=== PATIENT | male | born 1940 | race Caucasian/White ===

== ENCOUNTER 2017-10-31 05:39 | Inpatient (IN) | payer OTHER, MEDICARE ==
[2017-10-31] VITALS (15 sets, daily range): BP systolic 111–143; BP diastolic 56–83; PULSE 58–86; RESP 17–20; TEMP 98.2–98.6; O2SAT 61–98
[~2017-10-31] VITALS: Ht 172.7 cm; Wt 81.0 kg
[~2017-10-31 05:39] MED LIST: Z.0.NO CURRENT MEDS
[2017-10-31] MEDS ORDERED: ASPI-516 CHEW (06:28)
[2017-10-31] MEDS ORDERED: NITR0.4S SL (06:34)
[2017-10-31] MEDS ORDERED: CARV3.12 PO (06:34)
[2017-10-31] MEDS ORDERED: ATOR10TA15 PO (06:34)
[2017-10-31] MEDS ORDERED: AMLO2.5T PO (06:34)
[2017-10-31] MEDS ORDERED: LISI-515 PO (06:34)
[2017-10-31 06:45] LABS: AUTOMATED NEUTROPHIL # 4.7 TH/MM3 (1.8-7.7); BASOPHIL # 0.1 TH/MM3 (0-0.2); BASOPHIL % 0.9 % (0.0-2.0); EOSINOPHIL # 0.4 TH/MM3 (0-0.4); EOSINOPHIL % 4.8 % (0.0-4.0); HEMATOCRIT 42.4 % (39.0-51.0); HEMOGLOBIN 14.7 GM/DL (13.0-17.0); LYMPHOCYTE # 1.9 TH/MM3 (1.0-4.8); MEAN CELL VOLUME 89.5 FL (80.0-100.0); MEAN CORPUSCULAR HEMOGLOBIN 31.1 PG (27.0-34.0); MEAN CORPUSCULAR HGB CONC 34.7 % (32.0-36.0); MEAN PLATELET VOLUME 8.9 FL (7.0-11.0); MONOCYTE # 0.8 TH/MM3 (0-0.9); NEUT % 60.3 % (16.0-70.0); PLATELET COUNT 215 TH/MM3 (150-450); RED BLOOD COUNT 4.74 MIL/MM3 (4.50-5.90); RED CELL DISTRIBUTION WIDTH 13.4 % (11.6-17.2); WHITE BLOOD COUNT 7.7 TH/MM3 (4.0-11.0)
[2017-10-31 07:03] LABS: BICARBONATE 26.1 MEQ/L (21.0-32.0); CALCIUM 8.9 MG/DL (8.5-10.1); CREATININE 1.24 MG/DL (0.60-1.30)
[2017-10-31 07:04] LABS: PROTHROMBIN TIME - PATIENT 9.8 SEC (9.8-11.6)
[2017-10-31] MEDS: NS 1000P @30 MLS/HR (KVO) IV SCH ×2 (07:15→11:00)
[2017-10-31] MEDS ORDERED: HEPARIN SODIUM - IV 10,000 UNITS/10 ML VIAL ONE (07:17)
[2017-10-31] MEDS ORDERED: VERAPAMIL HCL 5 MG/2 ML VIAL ONE (07:17)
[2017-10-31] MEDS ORDERED: HEPARIN-NS/PF FLUSH BAG 2,000 ML IV FLUSH ONE (07:17)
[2017-10-31] MEDS ORDERED: MIDAZOLAM HCL 2 MG/2 ML VIAL ONE (07:17)
[2017-10-31] MEDS ORDERED: NITROGLYCERIN INJ 5 ML ONE (07:18)
--- NOTE | 2017-10-31 08:08 | CATHPROC ---
Patient Name: SYLVESTER SAMUEL Study #: [id number] Initial MD: Heber Santillan Date of : 1940 Study Date: 10/31/2017 Cardiac Catheterization Report 10/31/2017 8:08:08 AM Financial #: [id number] 1 of Patient Name: SYLVESTER SAMUEL Study #: [id number] Initial MD: Heber Santillan Date of : 1940 Study Date: 10/31/2017 Entire Case Report Patient Information Patient Name SYLVESTER SAMUEL Date of 1940 Age 77 years Financial # [id number] Gender M AlternateID Lab Number 4 Room Number DC10 Height (in) 68.0 Height (cm) 172.7 BSA 1.89 Weight (lbs) 166.5 Weight (kg) 75.7 Patient Address/Phone Number Home Address [facility] Home Phone Number [address] [facility] [phone] Study Information Study Number Admission Scheduled Start Study Start [id number] Oct 31 2017 5:39AM 10/31/2017 Oct 31 2017 7:04AM [facility] Cardiac Catheterization Admit Source Facility Department Other [facility] - Disability Counselor Physician and Clinical Staff Initial Heber Solares Manager Gas Yen Vazquez,MATY Other cathlab, cathlab Recorder Jesus Alberto Ribeiro RCIS(BS) Recorder Kendra Montes RT(R) Scrub Kailyn BhattiRT(R) Procedures Performed Procedure Location (Site) Vessel Name Coronary Angiograms LCA Left Coronary Coronary Angiograms RCA Right Coronary L Heart Cath 10/31/2017 8:08:08 AM Financial #: [id number] Patient Name: SYLVESTER SAMUEL Study #: [id number] Initial MD: Heber Santillan Date of : 1940 Study Date: 10/31/2017 Equipment Time Strike Off Machine Operator Description Size Mfg Part Number Used/Scraped TRANSDUCER, TRUWEVERETT [id number] 07:20 HERNANDEZ DIAZ * Used W/STOCKCOCK *[id number] *[id number] *[id number] 07:20 MALLINCKRODT SYRINGE, ANGIOMAT 150ML 150ML *[id number] Used 2SUB MEDICAL CONCEPT DRAPE, RADIAL FEMORAL FULL 07:20 * [id number] *[id number] Used DEVELOPMENT BODY [id number] 07:20 MEDLINE INDUSTRIES PACK, CCL CUSTOM * Used *[id number] 07:20 MEDLINE INDUSTRIES SUPPORT, ARTERIAL ADULT [id number] *[id number] Used [id number] 07:20 MEDLINE PACER PEN, SKIN DUAL W/ RULER * Used *[id number] BAND, RADIAL COMPRESSION TR [id number] 07:50 Edi.io 24CM Used SHORT 24 *[id number] SHEATH, FR6 RADIAL PRELUDE 07:20 Edi.[employer] FR 6 [id number] Used EASE 11CM [id number] 07:20 [employer]i.[employer] WIRE, EXCHANGE 260CM 3MMJ 260CM Used *[id number] 07:20 NAMIC MANIFOLD, 4 PORT * Used *[id number] 07:20 NYCOMED OMNIPAQUE, 350 MG, 150ML 150ML [id number] Used [id number] 07:20 [facility] BLANKET,WARM AIR CCL * Used *[id number] CATHETER, FR5 OPTITORQUE [id number] 07:34 TERUMO MEDICAL FR 5 Used RADIAL TIG 4.0 *[id number] Insurance Information Insurance Payor Private Health Insurance Third Libertarian Third Libertarian Number [employer] [facility] History: Current Medications Medication Dosage/Unit Route Frequency Last Date/Time Taken LISINOPRIL ASA History: Allergies Allergy Reaction No Known Allergies 10/31/2017 8:08:08 AM Financial #: [id number] Patient Name: SYLVESTER SAMUEL Study #: [id number] Initial MD: Heber Santillan Date of : 1940 Study Date: 10/31/2017 History: Risk Factors Family History of Hypertension Dyslipidemia Previous RI Previous Heart Failure Premature CAD Yes Yes Yes No No Prior Valve Prior PCI Prior CABG Surgery No No No Cerebrovascular Peripheral Artery Chronic Lung On Dialysis Diabetes Disease Disease Disease No No Yes No No History: Stress Tests Stress or Imaging Studies Performed No History: Other Disease Selection Items HTN History: Other Current Smoker Method Quit Packs a Day Years Used Pack Years No Cigarettes 30 Years Ago 1 35 35 Labs Hgb (g/dl) Hct (%) WBC (l/cumm) Platelets (thousands) 11.60-17.00 35.00-51.00 4.00-11.00 150.00-450.00 14.7 42.4 7.7 215 Glucose (mg/dl) BUN (mg/dl) Creatinine (mg/dl) BUN:Creatinine (1:x) 74.00-106.00 7.00-18.00 0.50-1.30 10.00-20.00 91 22 1.2 18.3 CPK-MB (ng/ML) 0.50-3.60 Not Drawn Medication Medication Total Dose (Bolus/Oral) Medication Total Dosage/Unit 1% XYLOCAINE 10 mL RADIAL COCKTAIL 5 mL (Bolus) VERSED 2 mg 10/31/2017 8:08:08 AM Financial #: [id number] Patient Name: SYLVESTER SAMUEL Study #: [id number] Initial MD: Heber Santillan Date of : 1940 Study Date: 018 Medications (Bolus/Oral) Medication Time Given Dosage/Unit Administered By Reason 1% XYLOCAINE 10/31/2017 7:33:04 AM 10 mL Heber Santillan 10 mL 1% XYLOCAINE given in lab by Heber Santillan in Right Radial via Subcutaneous. Ordered by Rudy Santillan. VERSED 10/31/2017 7:33:14 AM 2 mg Yen Vazquez 2 mg VERSED given in lab by Yen Vazquez, RN in Left Antecubital via Peripheral IV. Ordered by Heber Montenegro. Ntg 200mcg Verapamil 2.5mg Heparin RADIAL COCKTAIL 10/31/2017 7:38:00 AM 5 mL (Bolus) Heber Santillan 2500U 5 mL (Bolus) RADIAL COCKTAIL given in lab by Heber Santillan in Right Radial via Radial. Using [Solution Name]. Ordered by Heber Santillan. Reason: Ntg 200mcg Verapamil 2.5mg Heparin 2500U. Medication (Drip) Medication Time Given Dosage/Unit Concentration/Unit Diluent (ml) Solution IV Solutions 10/31/2017 7:10:23 AM 0 mL (IV) 500 NaCl .9 Patient arrived on IV Solutions given by cathlab, cathlab in Left Antecubital via Peripheral IV. Pump /Drip Flow = 20 ml/hr using NaCl .9. Ordered by Heber Santillan. Initial Case Assessment Cardiovascular HR Rhythm NIBP Chest Pain 57 nsr 118/63 0 Edema Present Skin color Skin None Normal Warm Dry Circulatory - Right Pulses Dorsalis Pedis Femoral Radial 2 2 2 Scale (0,1,2,3,4,d) Scale (0,1,2,3,4,d) Neurological State Oriented to time-place- Alert Moves all extremities person Respiration - General Respiration Rate SpO2 (%) (B/min) 15 95 10/31/2017 8:08:08 AM Financial #: [id number] Patient Name: SYLVESTER SAMUEL Study #: [id number] Initial MD: Heber Santillan Date of : 1940 Study Date: 10/31/2017 Vitals Summary Pain Time HR NIBP SpO2 Resp Temp EtCO2 Apnea Santo [place] Comment Level 07:21:04 61 118/63 100.0 15 10 0 2 07:26:32 59 146/80 100.0 12 10 0 2 07:31:02 59 136/85 100.0 15 10 0 2 07:36:03 63 120/71 96.0 9 10 0 2 07:41:02 67 125/61 94.0 11 10 0 2 07:46:01 73 105/72 96.0 15 10 0 2 07:50:58 62 110/65 99.0 39 10 0 2 Santo Score Summary Time Activity Resp Circ LOC Color Total Score 7:21:04 2 2 2 2 2 10 7:26:32 2 2 2 2 2 10 7:31:02 2 2 2 2 2 10 7:36:03 2 2 2 2 2 10 7:41:02 2 2 2 2 2 10 7:46:01 2 2 2 2 2 10 7:50:58 2 2 2 2 2 10 Santo Score Definition Table Activity - 0 Activity - 1 Activity - 2 No Movement to Command Weak Hand Grasp Lift Head, Good Hand Grasp Respiration - 0 Respiration - 1 Respiration - 2 Apneic or Obstructed Shallow Breath, Airway Adjunct Deep Breath, Cough Freely Circulation - 0 Circulation - 1 Circulation - 2 B/P > 50% Admission B/P B/P > 20-50% Admission B/P B/P Stable X3 Level of Consciousness - 0 Level of Consciousness - 1 Level of Consciousness - 2 Not Responding Arousable On Calling Awake and Aware Color - 0 Color- 1 Color - 2 Cyanotic Lips, Nailbed, Skin Pale, Dusky [place] Or Normal Chronological Log Time Study Chronological Log 7:09:14 Patient arrived via Bed. 7:09:15 Patient Name, D.O.B, / Armband Verified By R.N. 7:10:15 Consent signed by the physician and the patient and verified by the Disability Counselor staff. 7:10:15 Pre-op and post- op instructions given; patient acknowledges understanding of instructions . 7:10:16 Verbal Stimulation=2 Physical Stimulation=2 Airway=2 Respiration=2 TOTAL=8. (0=absent, 1=l imited, 2=present) 10/31/2017 8:08:08 AM Financial #: [id number] Patient Name: SYLVESTER SAMUEL Study #: [id number] Initial MD: Heber Santillan Date of : 1940 Study Date: 10/31/2017 7:10:17 Presedation assessment performed by Disability Counselor RN. 7:10:18 Immediate Presedation assesment performed by physician. 7:10:18 Patient has been NPO for More than 6Hrs. 7:10:19 Skin Breakdown- none per patient 7:10:20 Patient Warmer Placed on the Table. 7:10:22 Raymond Prominences Protected 7:10:23 A # 20 IV was noted in the Antecubital (left). Grade = 0 Patient arrived on IV Solutions given by cathlab cathlab in Left Antecubital via Peripheral IV . Pump/Drip Flow = 20 7:10:23 ml/hr using NaCl .9. Ordered by Heber Santillan. 7:10:24 History and physical on the chart or being dictated. 7:11:00 Allens test performed on the right radial and ulnar artery. 7:15:00 MD arrived. 7:17:26 Reference ECG taken Vitals capture started with the following parameters, Patient=Adult, Interval=5 min, Initial Pr aetzxi=043 mmHg, 7:20:26 Deflation Rate=5 mmHg, Cuff placed on Left Arm Assessment: Initial Case, HR=57 BPM, Rhythm=nsr, INCD=274/63 mmhg, Chest Pain=0, Edema=None, Co en[place]=Normal, Skin = Warm, Dry 7:20:30 Right Pulses: Juan Ramon Ped=2, Femoral=2, Radial=2 Neurological: State=Alert, Ox3, LEDEZMA Respiration: Resp=15 B/min, SpO2=95 % 7:21:04 HR=61 bpm, KIHR=923/63 mmhg, LyM4=257.0 %, Resp=15 B/min, Pain=0, Santo=10, Ellington=2 7:25:19 Right Radial and groin(s) prepped with 2% chlorhexidine, and draped after a 3 min. waiting time. 7:26:32 HR=59 bpm, LUVH=378/80 mmhg, QpQ8=161.0 %, Resp=12 B/min, Pain=0, Santo=10, Ellington=2 7:30:01 Pressure channel 1 zeroed. 7:31:02 HR=59 bpm, WOZU=082/85 mmhg, IgD5=416.0 %, Resp=15 B/min, Pain=0, Santo=10, Ellington=2 Time Out. Correct patient, correct procedure, correct physician, power injector not loaded with contrast with surgical 7:31:47 team present. Time Out Concurred by MD and individual staff in procedure. 7:32:09 Case Start 7:33:04 10 mL 1% XYLOCAINE given in lab by Heber Santillan in Right Radial via Subcutaneous. Ordered b y Heber Santillan. 7:33:14 2 mg VERSED given in lab by Yen Vazquez, RN in Left Antecubital via Peripheral IV. Orde red by Heber Santillan. 7:36:03 HR=63 bpm, TREJ=175/71 mmhg, SpO2=96.0 %, Resp=9 B/min, Pain=0, Santo=10, Ellington=2 7:36:52 Access site was Right Radial Artery. A SHEATH, FR6 RADIAL PRELUDE EASE 11CM FR 6 was advanced into the Radial (right) using the Perc utaneous 7:36:58 technique. 5 mL (Bolus) RADIAL COCKTAIL given in lab by Tyrell, Heber in Right Radial via Radial. Using [So lution Name]. Ordered 7:38:00 by Heber Santillan. Reason: Ntg 200mcg Verapamil 2.5mg Heparin 2500U. A CATHETER, FR5 OPTITORQUE RADIAL TIG 4.0 FR 5 was advanced over a wire. OMNIPAQUE, 350 MG, 150 ML 150ML 7:38:14 was used for injections. Recorded Pressure: Ao, HR=64, Condition=Condition 1 7:39:43 (Aorta) Ao 104/49/71 7:40:06 The RCA was injected and visualized at various angles. OMNIPAQUE, 350 MG, 150ML 150ML used . 7:40:46 Catheter was removed 7:41:02 HR=67 bpm, MYCY=460/61 mmhg, SpO2=94.0 %, Resp=11 B/min, Pain=0, Santo=10, Ellington=2 A JL 4.0 INFINITI CATHETER FR 4 was advanced over a wire. OMNIPAQUE, 350 MG, 150ML 150ML was us ed for 7:41:27 injections. 10/31/2017 8:08:08 AM Financial #: [id number] Patient Name: SYLVESTER SAMUEL Study #: [id number] Initial MD: Heber Santillan Date of : 1940 Study Date: 10/31/2017 7:42:35 The LCA was injected and visualized at various angles. OMNIPAQUE, 350 MG, 150ML 150ML used . 7:44:37 Catheter was removed A MPA-2 INFINITI CATHETER FR 5 was advanced over a wire. OMNIPAQUE, 350 MG, 150ML 150ML was use d for 7:45:22 injections. 7:46:01 HR=73 bpm, HDWY=445/72 mmhg, SpO2=96.0 %, Resp=15 B/min, Pain=0, Santo=10, Ellington=2 Recorded Pressure: LV, HR=62, Condition=Condition 1 7:46:31 (Left Ventricle) LV 102/3/11 Recorded Pressure: LV, Ao, HR=65, Condition=Condition 1 7:46:51 (Left Ventricle) LV 119/4/13, (Aorta) Ao 114/53/77 7:48:38 Catheter was removed 7:49:33 Catheter(s) removed without difficulty Radial Compression Device Used. 20 mLs of air placed in BAND, RADIAL COMPRESSION TR SHORT 24 24 CM. Affected 7:49:40 hand 98 % O2 saturation. 7:49:45 No case complications noted. 7:49:47 Cine recording checked. 7:49:48 Bedside Report will be given. 7:49:53 Contrast Scanned 7:50:00 Case End 7:50:01 A Left Heart Cath was performed. 7:50:58 HR=62 bpm, MZEI=330/65 mmhg, SpO2=99.0 %, Resp=39 B/min, Pain=0, Santo=10, Ellington=2 8:00:00 Patient moved to stretcher Recorded Pressures: Condition 1 Time Chamber Pressure Manual Override (*) 7:39:43 Ao 104/49/71 s/d/m 7:46:31 LV 102/3/11 s/bd/ed 7:46:51 LV 119/4/13 s/bd/ed 7:46:51 Ao 114/53/77 s/d/m End Study - Contrast Media Used In Study Contrast Total Opened (mL) Total Used (mL) Total Wasted (mL) Omnipaque 40 40 0 End Study - Maximum Contrast Load Max Contrast Load (mL) 315.3 10/31/2017 8:08:08 AM Financial #: [id number] Patient Name: SYLVESTER SAMUEL Study #: [id number] Initial MD: Heber Santillan Date of : 1940 Study Date: 10/31/2017 End Study - Radiation Exposure Fluoro Time (minutes) 2.8 End Study - Sheaths Sheaths Pulled By Sheath Hold Time (min) Kailyn Bhatti End Study - Patient Disposition Complications Transferred To Interventional Outcome No Disability Counselor Holding No attempt made 10/31/2017 8:08:08 AM Financial #: [id number]
[2017-10-31] MEDS ORDERED: SODIUM CHLORIDE 0.9% FLUSH 10 ML FLUSH IV FLUSH PRN ×2 (08:15→13:30)
[2017-10-31] MEDS ORDERED: MISC INFORMATION XX ONE (08:15)
[2017-10-31] MEDS ORDERED: SODIUM CHLORIDE 0.9% FLUSH 10 ML FLUSH IV FLUSH SCH (09:00)
[2017-10-31] MEDS: CARVEDILOL 3.125 MG TAB PO SCH ×2 (09:00→22:11)
[2017-10-31] MEDS: amLODIPine BESYLATE 5 MG TAB PO SCH (09:00)
[2017-10-31] MEDS: LISINOPRIL 20 MG TAB PO SCH (09:00)
[2017-10-31] MEDS ORDERED: HEPARIN SODIUM - IV 10,000 UNITS/10 ML VIAL IV PUSH ONE (10:00)
--- NOTE | 2017-10-31 10:06 | MA ---
cc: CHRISSY LIMA DATE 10/31/2017 PROCEDURE Left heart catheterization, selective coronary angiography, left ventriculography. PROCEDURE NOTE The patient was brought to the cardiac catheterization laboratory in a fasting state after having signed informed consent. The right radial region was prepped and draped as per policy and anesthetized with 1% lidocaine. Arterial access was obtained via the right radial artery and a 6-Serbian sheath placed. Coronary arteriography was performed using a Tigr catheter. Left ventriculography was done using a multipurpose catheter. There were no apparent immediate complications. A radial artery compression band was applied to his right wrist at the end of the case to achieve good hemostasis. HEMODYNAMIC RESULTS Left ventricle 119 with an end-diastolic pressure of 13. Aorta 114/53 with a mean of 77. There is no significant transvalvular aortic gradient on pullback of the pigtail catheter. CORONARY ARTERIOGRAPHY The left main appears to be a very short vessel probably with no significant disease, although there is considerable pressure dampening on engagement of the left main. The left anterior descending is a relatively small vessel giving rise to two small to medium sized diagonals arising in close succession. The proximal LAD may have up to 60% stenosis. The origin of the first diagonal has up to 80% stenosis. The origin of the second diagonal has up to 70% stenosis. In the distal LAD with a vessel is small, there is an eccentric 60-80% stenosis. The left circumflex is a very small caliber diffusely diseased vessel. It is difficult to quantify the degree of stenoses. There is likely at least 80% proximal stenosis and 90% distal disease. The left circumflex gives rise to a small obtuse marginal which has 90% ostial stenosis. The right coronary artery is a fairly large dominant vessel which is also diffusely disease. There is a long region of ostial to mid disease resulting in up to 95% proximal stenosis. There is also 90% mid disease. LEFT VENTRICULOGRAPHY Contrast injection of the left ventricle reveals no segmental wall motion abnormalities. Ejection fraction is estimated at 65%. CONCLUSIONS 1. Severe three-vessel coronary artery disease. 2. Normal left ventricular function with estimated ejection fraction of 65%. DISCUSSION No disease is amendable to percutaneous coronary intervention. The patient will be referred for possible bypass surgery. Bypass grafts could be placed to the right coronary artery, the two diagonals, and LAD. The left circumflex is too small and diseased for grafting. MD PAM eBnnett/SYBIL /7:57 AM /9:53 AM MTDMack
[2017-10-31] MEDS: HEPARIN-D5W 25,000 U/250 ML 250 ML IV PRN (10:51)
--- NOTE | 2017-10-31 13:22 | PD.CAR.PN ---
CVT Progress Note Subjective/Hospital Course: Pt examined and chart reviewed. Full consult dictated. OR Friday. Objective: Vital Signs Date Time Temp Pulse Resp B/P (MAP) Pulse Ox O2 Delivery O2 Flow Rate FiO2 10/31/17 13:00 61 10/31/17 12:00 86 10/31/17 11:00 61 10/31/17 11:00 98.2 70 20 117/81 (93) 98 10/31/17 10:09 79 10/31/17 10:09 98.2 61 20 127/83 (98) 61 10/31/17 06:15 58 17 143/82 (102) 97 Labs: Laboratory Tests Test 10/31/17 06:25 White Blood Count 7.7 TH/MM3 (4.0-11.0) Red Blood Count 4.74 MIL/MM3 (4.50-5.90) Hemoglobin 14.7 GM/DL (13.0-17.0) Hematocrit 42.4 % (39.0-51.0) Mean Corpuscular Volume 89.5 FL (80.0-100.0) Mean Corpuscular Hemoglobin 31.1 PG (27.0-34.0) Mean Corpuscular Hemoglobin Concent 34.7 % (32.0-36.0) Red Cell Distribution Width 13.4 % (11.6-17.2) Platelet Count 215 TH/MM3 (150-450) Mean Platelet Volume 8.9 FL (7.0-11.0) Neutrophils (%) (Auto) 60.3 % (16.0-70.0) Lymphocytes (%) (Auto) 24.0 % (9.0-44.0) Monocytes (%) (Auto) 10.0 % (0.0-8.0) Eosinophils (%) (Auto) 4.8 % (0.0-4.0) Basophils (%) (Auto) 0.9 % (0.0-2.0) Neutrophils # (Auto) 4.7 TH/MM3 (1.8-7.7) Lymphocytes # (Auto) 1.9 TH/MM3 (1.0-4.8) Monocytes # (Auto) 0.8 TH/MM3 (0-0.9) Eosinophils # (Auto) 0.4 TH/MM3 (0-0.4) Basophils # (Auto) 0.1 TH/MM3 (0-0.2) CBC Comment DIFF FINAL Differential Comment Prothrombin Time 9.8 SEC (9.8-11.6) Prothromb Time International Ratio 1.0 RATIO Activated Partial Thromboplast Time 26.4 SEC (24.3-30.1) Blood Urea Nitrogen 22 MG/DL (7-18) Creatinine 1.24 MG/DL (0.60-1.30) Random Glucose 91 MG/DL (74-106) Calcium Level 8.9 MG/DL (8.5-10.1) Sodium Level 139 MEQ/L (136-145) Potassium Level 4.8 MEQ/L (3.5-5.1) Chloride Level 104 MEQ/L (98-107) Carbon Dioxide Level 26.1 MEQ/L (21.0-32.0) Anion Gap 9 MEQ/L (5-15) Estimat Glomerular Filtration Rate 57 ML/MIN (>89) Result Diagram: 10/31/17 0625 10/31/17 0625 (1) CAD in [place] artery Jina Arango MD Oct 31, 2017 13:22
[2017-10-31] MEDS ORDERED: DEXTROSE 50% IN WATER 50 ML VIAL(D50) IV PUSH PRN (13:30)
[2017-10-31] MEDS ORDERED: CEFAZOLIN INJ 500 MG in SODIUM CHLORIDE 0.9% IRR BTL 500 ML IRRIGATION SCH (13:30)
[2017-10-31] MEDS ORDERED: ceFAZolin 2 GM PREMIX 50 ML IV SCH (13:30)
[2017-10-31] MEDS ORDERED: PAPAVERINE INJ 60 MG, NITROGLYCERIN INJ 100 MCG, DILTIAZEM INJ 100 MG in SODIUM CHLORID... IRRIGATION SCH (13:30)
[2017-10-31] MEDS ORDERED: CHLORHEXIDINE GLUCONATE 4% SOLN 120 ML BTL TOPICAL SCH (13:30)
[2017-10-31] MEDS ORDERED: INSULIN REGULAR (IV INFUSION) 100 UNITS in SODIUM CHLORIDE 0.9% INJ 99 ML IV PRN (13:30)
[2017-10-31] MEDS ORDERED: METOPROLOL TARTRATE 25 MG TAB PO SCH (13:30)
--- NOTE | 2017-10-31 13:44 | PD.CAR.PN ---
CVT Progress Note Subjective/Hospital Course: Pt examined and chart reviewed. Full consult dictated. OR Friday. Risk Model and Variables - STS Adult Cardiac Surgery Database Version 2.81 RISK SCORES About the STS Risk Calculator Procedure: CAB Only Risk of Mortality: 2.541% Morbidity or Mortality: 18.958% Long Length of Stay: 8.164% Short Length of Stay: 35.35% Permanent Stroke: 1.522% Prolonged Ventilation: 12.14% DSW Infection: 0.548% Renal Failure: 4.525% Reoperation: 7.449% Objective: Vital Signs Date Time Temp Pulse Resp B/P (MAP) Pulse Ox O2 Delivery O2 Flow Rate FiO2 10/31/17 13:00 61 10/31/17 12:00 86 10/31/17 11:00 61 10/31/17 11:00 98.2 70 20 117/81 (93) 98 10/31/17 10:09 79 10/31/17 10:09 98.2 61 20 127/83 (98) 61 10/31/17 06:15 58 17 143/82 (102) 97 Labs: Laboratory Tests Test 10/31/17 06:25 White Blood Count 7.7 TH/MM3 (4.0-11.0) Red Blood Count 4.74 MIL/MM3 (4.50-5.90) Hemoglobin 14.7 GM/DL (13.0-17.0) Hematocrit 42.4 % (39.0-51.0) Mean Corpuscular Volume 89.5 FL (80.0-100.0) Mean Corpuscular Hemoglobin 31.1 PG (27.0-34.0) Mean Corpuscular Hemoglobin Concent 34.7 % (32.0-36.0) Red Cell Distribution Width 13.4 % (11.6-17.2) Platelet Count 215 TH/MM3 (150-450) Mean Platelet Volume 8.9 FL (7.0-11.0) Neutrophils (%) (Auto) 60.3 % (16.0-70.0) Lymphocytes (%) (Auto) 24.0 % (9.0-44.0) Monocytes (%) (Auto) 10.0 % (0.0-8.0) Eosinophils (%) (Auto) 4.8 % (0.0-4.0) Basophils (%) (Auto) 0.9 % (0.0-2.0) Neutrophils # (Auto) 4.7 TH/MM3 (1.8-7.7) Lymphocytes # (Auto) 1.9 TH/MM3 (1.0-4.8) Monocytes # (Auto) 0.8 TH/MM3 (0-0.9) Eosinophils # (Auto) 0.4 TH/MM3 (0-0.4) Basophils # (Auto) 0.1 TH/MM3 (0-0.2) CBC Comment DIFF FINAL Differential Comment Prothrombin Time 9.8 SEC (9.8-11.6) Prothromb Time International Ratio 1.0 RATIO Activated Partial Thromboplast Time 26.4 SEC (24.3-30.1) Blood Urea Nitrogen 22 MG/DL (7-18) Creatinine 1.24 MG/DL (0.60-1.30) Random Glucose 91 MG/DL (74-106) Calcium Level 8.9 MG/DL (8.5-10.1) Sodium Level 139 MEQ/L (136-145) Potassium Level 4.8 MEQ/L (3.5-5.1) Chloride Level 104 MEQ/L (98-107) Carbon Dioxide Level 26.1 MEQ/L (21.0-32.0) Anion Gap 9 MEQ/L (5-15) Estimat Glomerular Filtration Rate 57 ML/MIN (>89) Result Diagram: 10/31/17 0625 10/31/17 0625 (1) CAD in [place] artery Jina Arango MD Oct 31, 2017 13:44
[2017-10-31] MEDS ORDERED: PILL SPLITTER OTHER PRN (13:45)
[2017-10-31] MEDS ORDERED: HEPARIN SODIUM - IV 10,000 UNITS/10 ML VIAL IV PUSH PRN ×2 (14:15)
--- NOTE | 2017-10-31 14:16 | EKG ---
Date Performed: 10/31/2017 Time Performed: 06:52:52 PTAGE: 77 years EKG: Sinus bradycardia. Inferior/lateral ST-T changes may be due to myocardial ischemia Abnormal ECG Compared to PREVIOUS TRACING , the inferior T-wave changes are new. They are nonspecific but myocardi al ischemia needs to excluded clinically. PREVIOUS TRACIN06/08/2002 09.58 DOCTOR: Micheline Pearson Interpretating Date/Time 10/31/2017 14:16:08
--- NOTE | 2017-10-31 14:58 | RADRPT ---
EXAM DATE/TIME: 10/31/2017 13:49 [facility] COMPARISON: No previous studies available for comparison. INDICATIONS : Pre-Op Cardiac surgery. MEDICAL HISTORY : Hypertension. Arthritis. SURGICAL HISTORY : Tonsillectomy. Cardiac catherization. ENCOUNTER: Initial ACUITY: 1 day PAIN SCORE: 0/10 LOCATION: Bilateral legs. TECHNIQUE: Venous ultrasound of the left and right leg was performed from the inguinal ligament to the proximal calf. Real-time, color Doppler and spectral tracing, compression and augmentation techniques were us ed. FINDINGS: RIGHT LEG: There is normal compressibility of the deep venous system from the inguinal region to the proximal ca lf. No echogenic clot is seen in the lumen of the common femoral, femoral, popliteal, and posterior tibial veins. There is a normal response of the venous system to proximal and distal augmentation an d respiration. LEFT LEG: There is normal compressibility of the deep venous system from the inguinal region to the proximal ca lf. No echogenic clot is seen in the lumen of the common femoral, femoral, popliteal, and posterior tibial veins. There is a normal response of the venous system to proximal and distal augmentation an d respiration. CONCLUSION: No evidence of deep venous thrombosis within the lower extremities. Miller Vega MD on October 31, 2017 at 14:55 Board Certified Radiologist. This report was verified electronically.
--- NOTE | 2017-10-31 15:07 | RADRPT ---
EXAM DATE/TIME: 10/31/2017 13:59 [facility] COMPARISON: No previous studies available for comparison. INDICATIONS : Pre-Op Cardiac surgery. MEDICAL HISTORY : Hypertension. Arthritis. SURGICAL HISTORY : Tonsillectomy. Cardiac catherization. ENCOUNTER: Initial ACUITY: 1 day PAIN SCORE: 0/10 LOCATION: Bilateral legs. GREATER SAPHENOUS VEIN THIGH: PROXIMAL: Right 5 mm Left 5 mm MID: Right 2 mm Left 4 mm DISTAL: Right 1 mm Left 4 mm CALF: PROXIMAL: Right 3 mm Left 2 mm MID: Right 2 mm Left 2 mm DISTAL: Right 2 mm Left 2 mm FINDINGS: The venous system of the lower extremities are patent by color Doppler imaging. Measurements of the leg veins (in mm) are listed above. CONCLUSION: Venous mapping as above. Ridge Mack MD FACR on October 31, 2017 at 15:05 Board Certified Radiologist. This report was verified electronically.
--- NOTE | 2017-10-31 15:26 | RADRPT ---
EXAM DATE/TIME: 10/31/2017 14:20 [facility] COMPARISON: No previous studies available for comparison. INDICATIONS : Pre-Op Cardiac surgery. MEDICAL HISTORY : Hypertension. Arthritis. SURGICAL HISTORY : Tonsillectomy. Cardiac catherization. ENCOUNTER: Initial ACUITY: 1 day PAIN SCORE: 0/10 LOCATION: Bilateral neck PEAK SYSTOLIC VELOCITIES (cm/sec): ICA/CCA RATIO: Right: 0.9 Left: 1.1 ICA: Right: 112 Left: 124 CCA: Right: 129 Left: 118 ECA: Right: 126 Left: 120 VERTEBRAL: Right: 78 antegrade Left: 46 antegrade Elevated flow velocities and ICA/CCA ratios have been found to correlate with increased degrees of vessel stenosis, calculated as percentage of diameter relative to a normal segment of distal ICA/CCA FINDINGS: RIGHT CAROTID: There is no evidence for a hemodynamically significant carotid stenosis. Minimal int imal hyperplasia is present with scattered calcific plaque. LEFT CAROTID: There is no evidence for a hemodynamically significant carotid stenosis. Minimal inti mal hyperplasia is present with scattered calcific plaque. VERTEBRAL ARTERIES: Flow is antegrade in both vertebral arteries. MISCELLANEOUS: There are no ancillary masses or adenopathy. CONCLUSION: Negative examination for a hemodynamically significant carotid stenosis. Ridge Mack MD FACR on October 31, 2017 at 15:23 Board Certified Radiologist. This report was verified electronically.
--- NOTE | 2017-10-31 16:06 | MB ---
cc: HEBER LIMA M.D., SOHIT K. MD DATE OF CONSULTATION: 10/31/2017. REASON FOR CONSULTATION: Symptomatic coronary artery disease. REFERRING PHYSICIAN: Heber Lima MD. HISTORY OF PRESENT ILLNESS: Mr. Jorge is a very pleasant 77-year gentleman with known history of hypertension and hyperlipidemia who presents with a progressive one-year history of intermittent chest pain described as a mid sternal discomfort and a pressure sensation primarily with exertion and lasts up to 4 to five minutes with resolution. He denies any exacerbating or associated symptoms or diaphoresis. The patient has been seen by Dr. Lima and has undergone further workup and evaluation. Eventual coronary angiogram today revealed multivessel coronary artery disease with relatively preserved ventricular function and small coronary arteries. I am now being consulted for surgical revascularization therapy. At the present time, he remains pain-free, hemodynamically stable with no evidence of ongoing ischemia. PAST MEDICAL HISTORY: His past medical history is significant for: 1. Hyperlipidemia. 2. Hypertension. 3. Peripheral vascular occlusive disease. ALLERGIES: THE PATIENT REPORTS NO KNOWN DRUG ALLERGIES.. ADMISSION MEDICATIONS: 1. Atorvastatin 10 milligrams. 2. Nitroglycerin sublingual. 3. Carvedilol 3.125. 4. Amlodipine 2.5. 5. Lisinopril 20. 6. Aspirin 81 milligrams. SOCIAL HISTORY: Denies any history of alcohol use or illicit drug use. There is a former history of tobacco use which he quit. FAMILY HISTORY: Family history is significant for coronary disease in the mother and uncle as well as stroke. REVIEW OF SYSTEMS: Review of systems is as above. All other parameters are negative. PHYSICAL EXAMINATION: HEIGHT: On physical examination today he is 172 cm tall. WEIGHT: He weights 75 kilos. VITAL SIGNS: Blood pressure is 117/81 with a heart rate of 70 which is regular, respiratory rate is 18 and he is afebrile. HEAD, EYES, EARS, NOSE, THROAT: Normocephalic and atraumatic. Pupils round and reactive. Extraocular muscles intact. NECK: No cervical lymphadenopathy, carotid bruits or jugular venous distention. CARDIOVASCULAR: Regular rate and rhythm. Normal S1 and S2 without murmurs, rubs or gallops. LUNGS: Clear to auscultation bilaterally with good exchange. ABDOMEN: The abdomen is soft, nontender and nondistended. Normoactive bowel sounds. No hepatosplenomegaly. EXTREMITIES: Bilateral lower extremity pulses are intact without cyanosis, clubbing or edema. No venous varicosities. NEUROLOGIC: Neurologically intact with no focal deficits. IMPRESSION: 1. Multivessel coronary artery disease. 2. Stable angina. 3. Hypertension. 4. Hyperlipidemia. 5. Peripheral vessel occlusive disease. PLAN: The clinical and angiographic findings were discussed in detail with the patient and his today. Therapeutic options available including coronary artery bypass grafting was recommended. I agree with Dr. Lima that he will undergo maximal benefit from bypass to his RPDA, diagonal, and potentially the distal LAD. The circumflex artery territory is very small and likely not bypassable. There is a concern that the LAD may be too small to bypass as well. However, this will be explored intraoperatively and determined the at that point. The plan will be to proceed as described above on Friday. In the meantime, we will obtain vein mapping, PFTs and carotid imaging. The patient and the understand the provided information and are in agreement with the plan as proposed. Thank you for allowing me to participate in the care of this patient. Jina MAURO /1:37 PM /3:38 PM MTDMack
[2017-10-31 16:22] LABS: HEMOGLOBIN A1C 5.6 % (4.3-6.0)
[2017-10-31] MEDS: ATORVASTATIN 10 MG TAB PO SCH (22:11)
[2017-10-31] MEDS: MUPIROCIN 2% OINT 1 APPLIC/GM SYR EACH NARE SCH (22:11)
[2017-10-31] MEDS: ASPIRIN 81 MG CHEW TAB CHEW SCH (22:12)
[2017-10-31] MEDS: SODIUM CHLORIDE 0.9% FLUSH 10 ML FLUSH IV FLUSH SCH (22:12)
[2017-11-01] VITALS (24 sets, daily range): BP systolic 100–136; BP diastolic 55–63; PULSE 55–91; RESP 12–20; TEMP 97.6–98.1; O2SAT 96–99
[2017-11-01 05:11] LABS: BICARBONATE 29.2 MEQ/L (21.0-32.0); CALCIUM 8.5 MG/DL (8.5-10.1); CREATININE 1.11 MG/DL (0.60-1.30)
[2017-11-01 05:14] LABS: CHOLESTEROL/ HDL RATIO 2.96 RATIO; HDL CHOLESTEROL 48.6 MG/DL (40.0-60.0)
[2017-11-01] MEDS: LISINOPRIL 20 MG TAB PO SCH (09:26)
[2017-11-01] MEDS: amLODIPine BESYLATE 5 MG TAB PO SCH (09:26)
[2017-11-01] MEDS: CARVEDILOL 3.125 MG TAB PO SCH ×2 (09:26→20:51)
[2017-11-01] MEDS: SODIUM CHLORIDE 0.9% FLUSH 10 ML FLUSH IV FLUSH SCH ×2 (09:27→20:52)
[2017-11-01] MEDS: MUPIROCIN 2% OINT 1 APPLIC/GM SYR EACH NARE SCH ×2 (09:27→20:52)
--- NOTE | 2017-11-01 14:42 | MH ---
cc: BRITTON IZQUIERDO DO DATE OF ADMISSION: 10/31/2017 CHIEF COMPLAINT: Chest pain. HISTORY OF CHIEF COMPLAINT: Tod Jorge is a pleasant 77-year-old male who sees my partner, Dr. Santillan, in the office. He presented to his office with chest pain. The chest pain can last up to five minutes. It is a pressure type quality that localizes to the left parasternal region and radiates into his left arm. Because of the significance of his chest pain, he was recommended cardiac catheterization. He underwent the procedure on October 31, 2017, and during it he was found to have multivessel disease and so he was recommended admission with evaluation by cardiothoracic surgery. On seeing him, he is currently on a heparin drip without chest pain or shortness of breath. PAST MEDICAL HISTORY: 1. Hypertension 2. Hyperlipidemia 3. Questionable peripheral vascular disease. PAST SURGICAL HISTORY Cardiac catheterization (October 31, 2017): left main short with no significant disease although there is considerable dampening on engagement of left main. The left anterior descending is a small vessel which gives rise to multiple diagonals. The left anterior descending has up to 60% stenosis. The first diagonal has 80% stenosis and the second diagonal has 70% stenosis. The distal left anterior descending is very small on eccentric with 60% to 80% stenosis. Left circumflex is small caliber with likely 80% stenosis. The right coronary artery is diffusely diseased with a 95 proximal and 90% mid. ALLERGIES: NO KNOWN DRUG ALLERGIES. MEDICATIONS: 1. Lipitor 10 milligrams every night. 2. Nitro sublingual as needed. 3. Coreg 3.125 milligrams twice a day. 4. Norvasc 2.5 milligrams daily. 5. Lisinopril 20 milligrams daily. 6. Aspirin 162 milligrams every night. FAMILY HISTORY: Denies sudden cardiac within the family. SOCIAL HISTORY: The patient is a nondrinker. He previously smoked but he quit a number of years ago. REVIEW OF SYSTEMS Fourteen systems were reviewed including osteopathic with pertinent positives and negatives as above; otherwise negative. PHYSICAL EXAMINATION VITAL SIGNS: Temperature 98.1, heart rate 58, blood pressure 134/63, respirations 18, pulse oximetry 99% on room air. GENERAL: In general, the patient appears well and in no acute distress. He is alert and oriented times three. HEAD, EYES, EARS, NOSE, THROAT: Extraocular muscles are intact. Mucous membranes moist. NECK: The neck is supple. No JVD at 45 degrees. No carotid bruits heard bilaterally. Carotid upstroke is brisk in nature. HEART: Regular rate and rhythm. Positive first and second heart sounds with no noted murmurs, gallops or rubs. LUNGS: Clear to auscultation bilaterally. No wheezes, rales or rhonchi. ABDOMEN: The abdomen is soft, nontender and nondistended. No organomegaly noted. EXTREMITIES: No clubbing, cyanosis or edema. Femoral and distal pulses are intact bilaterally. The right radial artery shows no hematoma. Distally neurovascularly intact. SKIN: Warm, dry and intact. OSTEOPATHIC: Osteopathically, no kyphoscoliosis, lordosis or paraspinal tender points. LAB WORK: Hemoglobin 14.7, hematocrit 42.4, platelets 215,000. Potassium 4.1, BUN 20, creatinine 1.1. Hemoglobin A1c 5.6. Triglycerides 91, total cholesterol 144, LDL 77, HDL 48.6. EKGS: Electrocardiogram (October 31, 2017 at 0652): Sinus bradycardia, anterior S-T-T wave changes may be due to ischemia. IMPRESSION: 1. Unstable angina. 2. Multivessel coronary artery disease. 3. Hypertension. 4. Hyperlipidemia. 5. Peripheral vascular disease. RECOMMENDATIONS: 1. Mr. Jorge will be evaluated by CT surgery for further consideration of possible CABG with a plan of right now, possibly Friday morning. 2. We will obtain a 2-D echocardiogram to look at his overall left ventricular function, cardiac structure and possible valvulopathies. 3. He has been placed on a heparin drip due to the significance of his disease. 4. He was on lisinopril on admission, but this will be held in anticipation of CABG. If he does become more hypertensive, then we will increase his other medications to help control this. Thank you for allowing me to see Tod Jorge. If there are any questions, please do not hesitate to call. Britton Izquierdo DO [facility] /2:16 PM /2:29 PM
[2017-11-01] MEDS: ASPIRIN 81 MG CHEW TAB CHEW SCH (20:51)
[2017-11-01] MEDS: ATORVASTATIN 10 MG TAB PO SCH (20:52)
[2017-11-02] VITALS (25 sets, daily range): BP systolic 124–157; BP diastolic 59–78; PULSE 56–83; RESP 12–18; TEMP 97.4–99.3; O2SAT 95–99
--- NOTE | 2017-11-02 07:03 | PD.CAR.PN ---
CVT Progress Note Subjective/Hospital Course: ECHO pending OR in am Objective: Vital Signs Date Time Temp Pulse Resp B/P (MAP) Pulse Ox O2 Delivery O2 Flow Rate FiO2 11/02/17 06:00 65 11/02/17 05:00 56 11/02/17 04:00 58 11/02/17 03:00 97.9 57 12 126/59 (81) 97 11/02/17 03:00 57 11/02/17 02:00 56 11/02/17 01:00 60 11/02/17 00:00 58 11/01/17 23:00 97.9 65 12 135/56 (82) 97 11/01/17 23:00 65 11/01/17 22:00 62 11/01/17 21:00 64 11/01/17 20:00 62 11/01/17 19:00 98.0 67 12 136/61 (86) 97 11/01/17 19:00 67 11/01/17 18:00 62 11/01/17 17:00 58 11/01/17 16:00 62 11/01/17 15:30 60 11/01/17 15:30 97.8 60 16 122/59 (80) 98 11/01/17 15:00 68 11/01/17 14:00 58 11/01/17 13:00 68 11/01/17 12:00 98.1 58 18 134/63 (86) 99 11/01/17 12:00 60 11/01/17 12:00 58 11/01/17 11:00 56 11/01/17 10:00 62 11/01/17 09:00 56 11/01/17 08:00 97.6 55 18 119/57 (77) 96 11/01/17 08:00 55 Labs: Laboratory Tests Test 11/02/17 03:45 Activated Partial Thromboplast Time 57.5 SEC (24.3-30.1) Result Diagram: 10/31/17 0625 11/01/17 0347 (1) CAD in [place] artery Jina Arango MD Nov 02, 2017 07:03
[2017-11-02] MEDS: CARVEDILOL 3.125 MG TAB PO SCH ×2 (08:51→20:18)
[2017-11-02] MEDS: amLODIPine BESYLATE 5 MG TAB PO SCH (08:51)
[2017-11-02] MEDS: MUPIROCIN 2% OINT 1 APPLIC/GM SYR EACH NARE SCH ×2 (08:51→20:18)
[2017-11-02] MEDS: SODIUM CHLORIDE 0.9% FLUSH 10 ML FLUSH IV FLUSH SCH ×2 (08:52→20:18)
--- NOTE | 2017-11-02 11:11 | PD.CARD.PN ---
Subjective Subjective Remarks Doing well No chest pain/SOB Objective Medications Current Medications Medications (Trade) Dose Ordered Sig/Fr[place]ka Route Start Time Stop Time Status Last Admin Sodium Chloride 1,000 ml @ 30 mls/hr Q24H IV 10/31/17 06:15 10/31/17 11:00 (Heparin Inj) 5,000 units UNSCH PRN IV PUSH 10/31/17 14:15 (Heparin Inj) 2,500 units UNSCH PRN IV PUSH 10/31/17 14:15 Heparin Sodium/ Dextrose 250 ml @ 9.084 mls/ hr TITRATE PRN IV 10/31/17 10:00 10/31/17 10:51 (Norvasc) 2.5 mg DAILY PO 10/31/17 09:00 11/02/17 08:51 (Aspirin Chew) 162 mg HS CHEW 10/31/17 21:00 11/01/17 20:51 (Lipitor) 10 mg HS PO 10/31/17 21:00 11/01/17 20:52 (Coreg) 3.125 mg BID PO 10/31/17 09:00 11/02/17 08:51 (NS Flush) 2 ml BID IV FLUSH 10/31/17 21:00 11/02/17 08:52 (NS Flush) 2 ml UNSCH PRN IV FLUSH 10/31/17 13:30 Papaverine HCl 60 mg/Nitroglycerin 100 mcg/Diltiazem HCl 100 mg/Sodium Chloride 100 ml @ 0 mls/hr BOW MAKER MACHINE TENDER IRRIGATION 10/31/17 13:30 11/07/17 13:29 Cefazolin Sodium 500 mg/Sodium Chloride 505 ml @ 0 mls/hr BOW MAKER MACHINE TENDER IRRIGATION 10/31/17 13:30 11/07/17 13:29 Cefazolin Sodium/ Dextrose 50 ml @ 100 mls/hr BOW MAKER MACHINE TENDER IV 10/31/17 13:30 11/07/17 13:29 (Lopressor) 12.5 mg BOW MAKER MACHINE TENDER PO 10/31/17 13:30 11/07/17 13:29 (Bactroban Nasal 2% Oint) 1 applic BID EACH NARE 10/31/17 21:00 11/05/17 20:59 11/02/17 08:51 (Hibiclens 4% Top Soln) 1 applic BOW MAKER MACHINE TENDER TOPICAL 10/31/17 13:30 11/07/17 13:29 Insulin Human Regular 100 units/ Sodium Chloride 100 ml @ 3 mls/hr TITRATE PRN IV 10/31/17 13:30 11/07/17 13:29 (D50w (Vial) Inj) 50 ml UNSCH PRN IV PUSH 10/31/17 13:30 (Pill Splitter) 1 ea UNSCH PRN OTHER 10/31/17 13:45 Vital Signs / I&O Vital Signs Date Time Temp Pulse Resp B/P (MAP) Pulse Ox O2 Delivery O2 Flow Rate FiO2 11/02/17 08:00 83 11/02/17 08:00 99.3 83 18 124/78 (93) 95 11/02/17 06:00 65 11/02/17 05:00 56 11/02/17 04:00 58 11/02/17 03:00 97.9 57 12 126/59 (81) 97 11/02/17 03:00 57 11/02/17 02:00 56 11/02/17 01:00 60 11/02/17 00:00 58 11/01/17 23:00 97.9 65 12 135/56 (82) 97 11/01/17 23:00 65 11/01/17 22:00 62 11/01/17 21:00 64 11/01/17 20:00 62 11/01/17 19:00 98.0 67 12 136/61 (86) 97 11/01/17 19:00 67 11/01/17 18:00 62 11/01/17 17:00 58 11/01/17 16:00 62 11/01/17 15:30 60 11/01/17 15:30 97.8 60 16 122/59 (80) 98 11/01/17 15:00 68 11/01/17 14:00 58 11/01/17 13:00 68 11/01/17 12:00 98.1 58 18 134/63 (86) 99 11/01/17 12:00 60 11/01/17 12:00 58 I/O 11/01/17 11/01/17 11/01/17 11/02/17 11/02/17 11/02/17 07:00 15:00 23:00 07:00 15:00 23:00 Intake Total 468 ml 900 ml 240 ml Balance 468 ml 900 ml 240 ml Intake Oral 900 ml 240 ml IV Total 468 ml # Voids 5 2 # Bowel Movements 1 Physical Exam GENERAL: NAD, AAOx3 SKIN: Warm and dry. HEAD: Atraumatic. Normocephalic. EYES: Pupils equal and round. No scleral icterus. No injection or drainage. ENT: No nasal bleeding or discharge. Mucous membranes pink and moist. NECK: Trachea midline. No JVD. CARDIOVASCULAR: Regular rate and rhythm. RESPIRATORY: No accessory muscle use. Clear to auscultation. Breath sounds equal bilaterally. GASTROINTESTINAL: Abdomen soft, non-tender, nondistended. Hepatic and splenic margins not palpable. MUSCULOSKELETAL: Extremities without clubbing, cyanosis, or edema. No obvious deformities. Right radial no hematoma, neurovascularly intact distally NEUROLOGICAL: Awake and alert. No obvious cranial nerve deficits. Motor grossly within normal limits. Five out of 5 muscle strength in the arms and legs. Normal speech. PSYCHIATRIC: Appropriate mood and affect; insight and judgment normal. Laboratory Laboratory Tests Test 11/02/17 03:45 Activated Partial Thromboplast Time 57.5 SEC Assessment and Plan Problem List: (1) CAD in [place] artery ICD Codes: I25.10 - Atherosclerotic heart disease of [place] coronary artery without angina pectoris (2) Multi-vessel coronary artery stenosis ICD Codes: I25.10 - Atherosclerotic heart disease of [place] coronary artery without angina pectoris (3) HLD (hyperlipidemia) ICD Codes: E78.5 - Hyperlipidemia, unspecified (4) HTN (hypertension) ICD Codes: I10 - Essential (primary) hypertension Assessment and Plan 1) MVCAD for CABG in AM 2) Echo pending 3) HTN Stable Lisinopril stopped in anticipation of CABG Britton Tirado DO Nov 02, 2017 11:11
[2017-11-02] MEDS: HEPARIN-D5W 25,000 U/250 ML 250 ML IV PRN (14:24)
--- NOTE | 2017-11-02 18:11 | ECHRPT ---
Indication: CABG CONCLUSIONS The left ventricular systolic function is normal with an estimated ejection fraction in the range of 55-60%. Trace mitral valve regurgitation. Trace aortic valve regurgitation. BP: 126 / 59 HR: 81 Rhythm: Sinus MEASUREMENTS (Male / Female) Normal Values Technical Quality:Fair 2D ECHO LV Diastolic Diameter PLAX 4.6 cm 4.2 - 5.9 / 3.9 - 5.3 cm LV Systolic Diameter PLAX 2.7 cm IVS Diastolic Thickness 1.0 cm 0.6 - 1.0 / 0.6 - 0.9 cm LVPW Diastolic Thickness 1.0 cm 0.6 - 1.0 / 0.6 - 0.9 cm LV Relative Wall Thickness 0.4 RV Internal Dim ED PLAX 2.4 cm LVOT Diameter 1.9 cm LA Systolic Diameter LX 2.7 cm 3.0 - 4.0 / 2.7 - 3.8 cm LV Ejection Fraction MOD 4C 70.5 % LV Cardiac Index MOD 4C 1828.9 cm/minm LV Ejection Fraction 4C AL 72.0 % LV Cardiac Index 4C AL 1923.6 cm/minm M-MODE Aortic Root Diameter MM 2.2 cm LA Systolic Diameter MM 2.6 cm LA Ao Ratio MM 1.2 AV Cusp Separation MM 1.7 cm DOPPLER AV Peak Velocity 132.0 cm/s AV Peak Gradient 7.0 mmHg AI Peak Velocity 385.0 cm/s AI Peak Gradient 59.3 mmHg AI Pressure Half Time 726.0 ms LVOT Peak Velocity 91.3 cm/s LVOT Peak Gradient 3.3 mmHg AV Area Cont Eq pk 2.0 cm MV Area PHT 3.5 cm Mitral E Point Velocity 91.8 cm/s Mitral A Point Velocity 93.8 cm/s Mitral E to A Ratio 1.0 LV E' Lateral Velocity 6.5 cm/s Mitral E to LV E' Lateral Ratio 14.1 LV E' Septal Velocity 6.1 cm/s Mitral E to LV E' Septal Ratio 15.0 PV Peak Velocity 144.0 cm/s PV Peak Gradient 8.3 mmHg FINDINGS LEFT VENTRICLE The left ventricular systolic function is normal with an estimated ejection fraction in the range of 55-60%. Normal left ventricular size. Wall thickness is normal. No regional wall motion abnormalities are present. RIGHT VENTRICLE Normal right ventricular size and systolic function. LEFT ATRIUM The left atrial size is normal. RIGHT ATRIUM The right atrial size is normal. ATRIAL SEPTUM Normal atrial septal thickness. AORTA The aortic root and proximal ascending aorta are normal in size on limited imaging. MITRAL VALVE Structurally normal mitral valve. Trace mitral valve regurgitation. No mitral valve stenosis. AORTIC VALVE Trileaflet aortic valve. Trace aortic valve regurgitation. No aortic valve stenosis. TRICUSPID VALVE Structurally normal tricuspid valve. No tricuspid valve stenosis or regurgitation. PULMONARY VALVE The pulmonary valve is not well visualized. VESSELS The inferior vena cava is normal in size. PERICARDIUM No pericardial effusion. Britton Tirado DO (Electronically Signed) Final Date:02 November 2017 18:10
--- NOTE | 2017-11-02 20:14 | RADRPT ---
EXAM DATE/TIME: 11/02/2017 19:49 [facility] COMPARISON: No previous studies available for comparison. INDICATIONS : Preop CABG, evaulate for pneumonia, pneumothorax and or communicable disease. MEDICAL HISTORY : None. SURGICAL HISTORY : None. ENCOUNTER: Initial ACUITY: 1 day PAIN SCORE: 0/10 LOCATION: Bilateral chest FINDINGS: A single view of the chest demonstrates the lungs to be symmetrically aerated without evidence of mas s, infiltrate or effusion. The cardiomediastinal contours are unremarkable. Osseous structures are intact. CONCLUSION: The lungs are clear. Sanjeev Morley MD on November 02, 2017 at 20:11 Board Certified Radiologist. This report was verified electronically.
[2017-11-02] MEDS: NS 1000P @30 MLS/HR (KVO) IV SCH (20:17)
[2017-11-02] MEDS: ASPIRIN 81 MG CHEW TAB CHEW SCH (20:18)
[2017-11-02] MEDS: ATORVASTATIN 10 MG TAB PO SCH (20:18)
[2017-11-02 21:28] LABS: BILIRUBIN, URINE NEG (NEG); BLOOD, URINE NEG (NEG); GLUCOSE,URINE NEG (NEG); KETONE, URINE NEG (NEG); NITRITE,URINE NEG (NEG); PH, URINE 6.5 (5.0-8.5); SQUAMOUS EPITHELIAL CELL URINE <1 /hpf (0-5); URINE COLOR LIGHT-YELLOW (YELLW/STRAW); URINE LEUKOCYTE ESTERASE NEG (NEG)
[2017-11-02] MEDS ORDERED: CHLORHEXIDINE GLUCONATE 2 % 1 PACK (2 CLOTHS) TOPICAL PRN (23:45)
[2017-11-02] MEDS ORDERED: SODIUM CHLORID 0.9% 500 ML IV PRN (23:45)
[2017-11-02] MEDS ORDERED: LACTATED RINGER'S 1000 ML IV PRN (23:45)
[2017-11-02] MEDS ORDERED: POVIDONE IODINE 5% (ANTISEPSIS KIT) 4 APPLICATIONS EACH NARE PRN (23:45)
[2017-11-03] VITALS (13 sets, daily range): BP systolic 111–149; BP diastolic 58–73; PULSE 56–71; RESP 16–20; TEMP 97.6–98.2; O2SAT 94–99
[2017-11-03] MEDS: CARVEDILOL 3.125 MG TAB PO SCH ×2 (05:06→21:00)
[2017-11-03 05:09] LABS: HEMATOCRIT 40.5 % (39.0-51.0); HEMOGLOBIN 14.1 GM/DL (13.0-17.0); MEAN CELL VOLUME 89.4 FL (80.0-100.0); MEAN CORPUSCULAR HEMOGLOBIN 31.1 PG (27.0-34.0); MEAN CORPUSCULAR HGB CONC 34.7 % (32.0-36.0); MEAN PLATELET VOLUME 8.4 FL (7.0-11.0); PLATELET COUNT 188 TH/MM3 (150-450); RED BLOOD COUNT 4.54 MIL/MM3 (4.50-5.90); RED CELL DISTRIBUTION WIDTH 13.1 % (11.6-17.2); WHITE BLOOD COUNT 8.1 TH/MM3 (4.0-11.0)
[2017-11-03] MEDS ORDERED: MIDAZOLAM HCL 5 MG/ML VIAL (1 ML) ONE (07:02)
[2017-11-03] MEDS ORDERED: fentaNYL CITRATE 1000 MCG/20 ML VIAL ONE (07:02)
[2017-11-03] MEDS ORDERED: HEPARIN SODIUM - SQ 10,000 UNITS/ML VIAL ONE ×2 (07:19→09:40)
[2017-11-03] MEDS ORDERED: ceFAZolin 2 GM PREMIX 50 ML ONE (07:19)
[2017-11-03] MEDS ORDERED: VANCOMYCIN HCL 1000 MG VIAL ONE ×2 (07:19→09:40)
[2017-11-03] MEDS: MUPIROCIN 2% OINT 1 APPLIC/GM SYR EACH NARE SCH ×2 (09:00→21:00)
[2017-11-03] MEDS: amLODIPine BESYLATE 5 MG TAB PO SCH (09:00)
[2017-11-03] MEDS: SODIUM CHLORIDE 0.9% FLUSH 10 ML FLUSH IV FLUSH SCH ×2 (09:00→21:00)
--- NOTE | 2017-11-03 11:40 | PD.OP ---
cc: Jina Arango MD; Heber Santillan MD Operative Report Date of Surgery: Nov 03, 2017 Preoperative Diagnosis: Postoperative Diagnosis: Procedure: 1. Urgent Clampless Off-pump Coronary Artery Bypass Grafting x 3 with Left Internal Mammary Artery ([place]) to the Left Anterior Descending (LAD), reverse saphenous vein graft to the Posterior Descending (RPDA) branch of the Right Coronary Artery, reverse saphenous vein graft to the Diagonal 1 (D1) branch of the LAD 2. Left Leg Endoscopic Vein [place] 3. Intraoperative Vein Mapping Surgeon: Jina Arango Clinical Services Professional(s): Mateo Longo Operation and Findings: PREPROCEDURE DIAGNOSES 1. Multi-Vessel Coronary Artery Disease. 2. Unstable Angina POSTPROCEDURE DIAGNOSES 1. Multi-Vessel Coronary Artery Disease. 2. Unstable Angina 3. Heavily Calcified Ascending Aorta SURGICAL PROCEDURE 1. Urgent Clampless Off-pump Coronary Artery Bypass Grafting x 3 with Left Internal Mammary Artery ([place]) to the Left Anterior Descending (LAD), reverse saphenous vein graft to the Posterior Descending (RPDA) branch of the Right Coronary Artery, reverse saphenous vein graft to the Diagonal 1 (D1) branch of the LAD 2. Left Leg Endoscopic Vein [place] 3. Intraoperative Vein Mapping SURGEON Jina Arango MD CUBING MACHINE TENDER KELSEY Sadler ANESTHESIA General endotracheal MEAT AND SEAFOOD MANAGER GABO Rae MD PREPARATION ChloraPrep. COUNTS Needle, sponge, and instrument counts were correct. DRAINS Two 32-[place]ris[place] mediastinal tubes. COMPLICATIONS None. INDICATIONS FOR PROCEDURE The patient is a 77-year-old presenting with CP and multi-vessel coronary artery disease. He is being brought to the operating room for urgent surgical revascularization therapy. PROCEDURE Patient was brought to the operating room and placed supine on the OR table. Following the induction of adequate general endotracheal anesthesia and placement of appropriate monitoring devices, intraoperative vein mapping was performed and revealed good caliber conduit in both LE. The patient was then prepped and draped in standard sterile fashion. Next, 2500 units of intravenous heparin was given. The left greater saphenous vein was harvested endoscopically from the thigh. This appeared to be a useable-caliber conduit. Simultaneously, a median sternotomy was performed and the left internal mammary artery dissected free off the posterior sternal table. The patient was systemically heparinized and anticoagulation monitored by serial ACT measurements. The internal mammary artery had good pulsatile flow and was a decent-caliber conduit. The pericardium was then divided in the midline, the cradle created and targets analyzed. At this point, all anastomoses were performed in a beating -heart fashion using the Maquet stabilizing system. The left internal mammary artery was then anastomosed to the distal LAD (1.5 mm) in an end-to-side fashion using 7-0 Prolene. The RSVG segment was anastomosed to the RPDA (1.5 mm ) in an end-to-side fashion using a running 7-0 Prolene. The final segment was anastomosed to the D1 (1.5 mm) in an end-to-side fashion using a running 7-0 Prolene. The proximal anastomoses were then constructed to the ascending aorta in a running manner using 6-0 Prolene. The ascending aorta was noted to be heavily calcified laterally and posteriorly, therefore, the proximal anastomoses were performed in a clampless fashion using the Heartstring III device. All anastomotic sites were inspected and appeared to be hemostatic and patent. Protamine solution was given. Strict hemostasis was assured. The closure was undertaken. 2 chest tubes were placed. The pericardium was reapproximated in the midline. The sternum was approximated using sternal wires. The muscular and fascial layer were then closed in 3 layers. The endoscopic vein harvest site was closed in 2 layers. The patient tolerated the procedure well and was transferred to CVICU in critical but stable condition. Jina Arango MD Nov 03, 2017 11:39
[2017-11-03] MEDS ORDERED: Post-op Orders (for Pharmacy) OTHER ONE (11:52)
[2017-11-03] MEDS ORDERED: PHENYLEPH/NS 1000 MCG/10 ML SYR IV ONE (12:00)
[2017-11-03] MEDS ORDERED: PROTAMINE SULFATE 250 MG/25 ML VIAL IV ONE (12:00)
[2017-11-03] MEDS ORDERED: DEXMEDETOMIDINE HCL 200 MCG/2 ML VIAL IV ONE (12:00)
[2017-11-03] MEDS ORDERED: HEPARIN SODIUM - SQ 10,000 UNITS/ML VIAL SQ ONE (12:00)
[2017-11-03] MEDS ORDERED: NITROGLYCERIN 50 MG/DEXTROSE 5% SOLN 250 ML BTL IV ONE (12:00)
[2017-11-03] MEDS ORDERED: CALCIUM CHLORIDE 10% SOLN 1 GRAM/10 ML SYR IV ONE (12:00)
[2017-11-03] MEDS ORDERED: ePHEDrine/NS 25 MG/5 ML SYRINGE IV ONE (12:00)
[2017-11-03] MEDS ORDERED: MAGNESIUM SULFATE 1 GM/2 ML VIAL IV ONE (12:00)
[2017-11-03] MEDS ORDERED: AMIODARONE HCL 150 MG/3 ML VIAL IV ONE (12:00)
[2017-11-03] MEDS ORDERED: VECURONIUM BROMIDE 10 MG VIAL IV ONE (12:00)
[2017-11-03] MEDS ORDERED: LIDOCAINE HCL 1% PF 5 ML SYRINGE OTHER ONE (12:00)
[2017-11-03] MEDS ORDERED: ALBUMIN 5% INJ 250 ML IV ONE (12:01)
[2017-11-03] MEDS ORDERED: DOBUTamine PREMIX DRIP 250 ML IV PRN (12:03)
[2017-11-03] MEDS ORDERED: LACTATED RINGER'S 1000 ML INJ 500 ML IV PRN (12:03)
[2017-11-03] MEDS ORDERED: POTASSIUM CHLORIDE 20 MEQ CONTROLLED RELEASE TAB PO PRN ×2 (12:15)
[2017-11-03] MEDS ORDERED: ONDANSETRON HCL 4 MG/2 ML VIAL IV PUSH PRN (12:15)
[2017-11-03] MEDS ORDERED: ALBUMIN 5% INJ 250 ML IV PRN (12:15)
[2017-11-03] MEDS ORDERED: SODIUM CHLORIDE 0.9% FLUSH 10 ML FLUSH IV FLUSH PRN (12:15)
[2017-11-03] MEDS ORDERED: ACETAMINOPHEN 325 MG TAB PO PRN (12:15)
[2017-11-03] MEDS ORDERED: hydrALAZINE HCL 20 MG/ML VIAL IV PUSH PRN (12:15)
[2017-11-03] MEDS ORDERED: ACETAMINOPHEN 650 MG SUPP RECTAL PRN (12:15)
[2017-11-03] MEDS ORDERED: DOPamine INJ PREMIX 500 ML IV PRN (12:15)
[2017-11-03] MEDS ORDERED: RESP: ALBUTEROL 2.5 MG/IPRATROPIUM 0.5 MG NEB (PRN) NEB (12:15)
[2017-11-03] MEDS ORDERED: MORPHINE SULFATE 2 MG/ML INJ IV PUSH PRN (12:15)
[2017-11-03] MEDS ORDERED: CLEVIDIPINE INJ 50 ML IV PRN (12:15)
[2017-11-03] MEDS ORDERED: CALCIUM CHLORIDE 10% 1 GRAM/10 ML VIAL IV PUSH PRN (12:15)
[2017-11-03] MEDS ORDERED: SODIUM BICARBONATE 8.4% SOLN 50 MEQ/50 ML VIAL IV PUSH PRN ×2 (12:15)
[2017-11-03] MEDS ORDERED: DEXMEDETOMIDINE INJ 200 MCG in SODIUM CHLORIDE 0.9% INJ 50 ML IV PRN (12:15)
[2017-11-03] MEDS ORDERED: METOPROLOL TARTRATE 5 MG/5 ML VIAL IV PUSH PRN (12:15)
[2017-11-03] MEDS ORDERED: CALCIUM CHLORIDE INJ 1 GM in SODIUM CHLORIDE 0.9% INJ 100 ML IV PRN (12:15)
[2017-11-03] MEDS ORDERED: MAGNESIUM SULFATE INJ 2 GM in SODIUM CHLORIDE 0.9% INJ 100 ML IV PRN ×4 (12:15)
[2017-11-03] MEDS ORDERED: POTASSIUM CHLOR 20 MEQ PREMIX 100 ML IV PRN ×3 (12:15)
[2017-11-03] MEDS ORDERED: RESP: RACEPINEPHRINE 2.25% 0.5 ML NEB NEB PRN (12:15)
[2017-11-03] MEDS ORDERED: DEXTROSE 50% IN WATER 50 ML VIAL(D50) IV PUSH PRN (12:15)
[2017-11-03] MEDS ORDERED: MEPERIDINE HCL 25 MG/ML VIAL IV PUSH PRN (12:15)
[2017-11-03] MEDS ORDERED: NITROGLYCERIN-D5W 50 MG/250 ML 250 ML IV PRN (12:15)
[2017-11-03] MEDS ORDERED: INSULIN REGULAR (IV INFUSION) 100 UNITS in SODIUM CHLORIDE 0.9% INJ 99 ML IV PRN (12:15)
[2017-11-03] MEDS ORDERED: PHENYLEPHRINE INJ 40 MG in DEXTROSE 5% IN WATE 500 ML INJ 496 ML IV PRN ×2 (12:15)
--- NOTE | 2017-11-03 13:03 | RADRPT ---
EXAM DATE/TIME: 11/03/2017 12:14 [facility] COMPARISON: CHEST SINGLE AP, November 02, 2017, 19:49. INDICATIONS : Post CABG. MEDICAL HISTORY : Hypertension. SURGICAL HISTORY : Tonsillectomy. Cardiac catherization. ENCOUNTER: Initial ACUITY: 1 day PAIN SCORE: Non-responsive. LOCATION: Bilateral chest FINDINGS: A single view of the chest demonstrates a endotracheal tube to be 2 cm above the dinesh. Nasogastric tube tip in stomach. Status post CABG. Left subclavian central line with tip at the cavoatrial juncti on. Left-sided chest tube and right-sided/mediastinal chest tube. Lungs are clear. Osseous structure s are intact. CONCLUSION: 1. Recent CABG. 2. Support lines and tubes as described above. Bossman Dill MD on November 03, 2017 at 12:57 Board Certified Radiologist. This report was verified electronically.
[2017-11-03] MEDS: KETOROLAC TROMETHAMINE 30 MG/ML (IVP) VIAL IV PUSH PRN (13:07)
[2017-11-03] MEDS: ACETAMINOPHEN 1000 MG/100 ML 100 ML IV SCH ×2 (13:08→20:00)
[2017-11-03] MEDS: RESP: ALBUTEROL 2.5 MG/IPRATROPIUM 0.5 MG NEB (SCH) NEB ×2 (15:43→19:27)
[2017-11-03] MEDS: ceFAZolin 2 GM PREMIX 50 ML IV SCH (16:23)
[2017-11-03] MEDS: AMIODARONE 200 MG TAB PO SCH (21:00)
[2017-11-03] MEDS: ATORVASTATIN 10 MG TAB PO SCH (21:00)
[2017-11-04] VITALS (10 sets, daily range): BP systolic 98–120; BP diastolic 51–66; PULSE 82–93; RESP 12–20; TEMP 98.1–99.2; O2SAT 94–99
[2017-11-04] MEDS: ACETAMINOPHEN 1000 MG/100 ML 100 ML IV SCH ×2 (02:00→08:54)
[2017-11-04] MEDS: RESP: ALBUTEROL 2.5 MG/IPRATROPIUM 0.5 MG NEB (SCH) NEB ×4 (04:11→20:54)
[2017-11-04 04:55] LABS: HEMATOCRIT 31.4 % (39.0-51.0); HEMOGLOBIN 10.5 GM/DL (13.0-17.0); MEAN CELL VOLUME 89.7 FL (80.0-100.0); MEAN CORPUSCULAR HEMOGLOBIN 30.1 PG (27.0-34.0); MEAN CORPUSCULAR HGB CONC 33.6 % (32.0-36.0); MEAN PLATELET VOLUME 8.7 FL (7.0-11.0); PLATELET COUNT 157 TH/MM3 (150-450); RED CELL DISTRIBUTION WIDTH 13.6 % (11.6-17.2); WHITE BLOOD COUNT 13.2 TH/MM3 (4.0-11.0)
--- NOTE | 2017-11-04 05:04 | RADRPT ---
EXAM DATE/TIME: 11/04/2017 04:08 [facility] COMPARISON: CHEST SINGLE AP, November 03, 2017, 12:14. INDICATIONS : Short of breath. MEDICAL HISTORY : Hypertension. SURGICAL HISTORY : Tonsillectomy. Cardiac catherization. ENCOUNTER: Subsequent ACUITY: 1 week PAIN SCORE: 0/10 LOCATION: Bilateral chest FINDINGS: Endotracheal tube has been removed, otherwise stable appearance of the chest with bilateral chest tub es, left subclavian line, and left sided rib fracture deformities again seen. I do not see a pneumoth orax. CONCLUSION: No significant change has occurred. Richie Richard MD on November 04, 2017 at 5:01 Board Certified Radiologist. This report was verified electronically.
[2017-11-04 05:24] LABS: BICARBONATE 23.7 MEQ/L (21.0-32.0); CALCIUM 7.7 MG/DL (8.5-10.1); CREATININE 0.93 MG/DL (0.60-1.30)
[2017-11-04] MEDS: PANTOPRAZOLE SOD 40 MG DELAYED RELEASE TAB PO SCH (05:40)
[2017-11-04] MEDS: NS 1000P @30 MLS/HR (KVO) IV SCH (06:15)
[2017-11-04] MEDS: ceFAZolin 2 GM PREMIX 50 ML IV SCH ×4 (08:54→23:47)
[2017-11-04] MEDS: MUPIROCIN 2% OINT 1 APPLIC/GM SYR EACH NARE SCH (08:54)
[2017-11-04] MEDS: AMIODARONE 200 MG TAB PO SCH ×2 (08:55→23:25)
[2017-11-04] MEDS: SODIUM CHLORIDE 0.9% FLUSH 10 ML FLUSH IV FLUSH SCH ×2 (08:55→21:00)
[2017-11-04] MEDS: CLOPIDOGREL 75 MG TAB PO SCH (08:55)
[2017-11-04] MEDS: amLODIPine BESYLATE 5 MG TAB PO SCH (08:56)
[2017-11-04] MEDS: ASPIRIN 81 MG CHEW TAB PO SCH (08:56)
[2017-11-04] MEDS: CARVEDILOL 3.125 MG TAB PO SCH (08:56)
[2017-11-04] MEDS ORDERED: ACETAMINOPHEN/HYDROcodone 325 MG/5 MG TAB PO PRN (09:15)
[2017-11-04] MEDS ORDERED: GLUCAGON 1 MG/ML VIAL OTHER PRN (09:15)
[2017-11-04] MEDS ORDERED: BISACODYL 10 MG SUPP RECTAL PRN (09:15)
[2017-11-04] MEDS ORDERED: DEXTROSE 50% IN WATER 50 ML VIAL(D50) IV PUSH PRN (09:15)
[2017-11-04] MEDS: INSULIN ASPART SUPPLEMENTAL SCALE SQ SCH ×4 (10:42→22:00)
[2017-11-04] MEDS: ACETAMINOPHEN/HYDROcodone 325 MG/5 MG TAB PO PRN ×2 (14:12→19:36)
--- NOTE | 2017-11-04 14:21 | PD.CAR.PN ---
CVT Progress Note CVT: POD #: 1 Subjective/Hospital Course: Mr. Jorge is a very pleasant 77-year gentleman with known history of hypertension and hyperlipidemia who presents with a progressive one-year history of intermittent chest pain described as a mid sternal discomfort and a pressure sensation primarily with exertion and lasts up to 4 to five minutes with resolution. He denies any exacerbating or associated symptoms or diaphoresis. The patient has been seen by Dr. Santillan and has undergone further workup and evaluation. Eventual coronary angiogram today revealed multivessel coronary artery disease with relatively preserved ventricular function and small coronary arteries. Dr Arango was consulted for surgical revascularization therapy. PAST MEDICAL HISTORY: Hyperlipidemia, Hypertension, Peripheral vascular occlusive disease surgery: 11/03 1. Urgent Clampless Off-pump Coronary Artery Bypass Grafting x 3 with Left Internal Mammary Artery ([place]) to the Left Anterior Descending (LAD), reverse saphenous vein graft to the Posterior Descending (RPDA) branch of the Right Coronary Artery, reverse saphenous vein graft to the Diagonal 1 (D1) branch of the LAD 2. Left Leg Endoscopic Vein [place] extubated after surgery crystalloid 3300cc/ cell saver 520cc, EBL 1000cc 11/04 pt up in chair, remains in NSR BB restarted, on statin , ASA, plavix chest tube drained 170cc/ 12 hrs stable for transfer to stepdown unit Objective: GENERAL: A&O x 3 SKIN: Warm and dry. prevena dressing to chest , jasper wrap to left leg HEAD: Normocephalic. EYES: No scleral icterus. No injection or drainage. NECK: Supple, trachea midline. No JVD or lymphadenopathy. CARDIOVASCULAR: Regular rate and rhythm without murmurs, gallops, or rubs. RESPIRATORY: Breath sounds equal bilaterally. No accessory muscle use. GASTROINTESTINAL: Abdomen soft, non-tender, nondistended. MUSCULOSKELETAL: No cyanosis, or edema. BACK: Nontender without obvious deformity. No CVA tenderness. Vital Signs Date Time Temp Pulse Resp B/P (MAP) Pulse Ox O2 Delivery O2 Flow Rate FiO2 11/04/17 11:00 84 11/04/17 11:00 96 Nasal Cannula 2.00 11/04/17 11:00 98.3 90 16 108/64 (79) 96 11/04/17 09:48 98 Nasal Cannula 2.00 11/04/17 07:00 87 11/04/17 07:00 98.6 92 16 112/57 (75) 98 11/04/17 07:00 98 Nasal Cannula 2.00 11/04/17 04:00 97 Nasal Cannula 2.00 11/04/17 04:00 86 11/04/17 04:00 99.2 86 20 98/51 (67) 97 11/04/17 02:30 74 116/54 11/04/17 00:00 82 11/04/17 00:00 98.5 83 18 111/53 (72) 98 11/04/17 00:00 98 Nasal Cannula 2.00 11/03/17 21:00 99 Nasal Cannula 2.00 11/03/17 21:00 68 122/64 11/03/17 20:00 97.7 58 20 117/60 (79) 99 Arterial Line 11/03/17 20:00 99 Nasal Cannula 3.00 11/03/17 20:00 58 11/03/17 19:28 99 Nasal Cannula 3.00 11/03/17 18:26 58 102/56 11/03/17 15:00 97 Nasal Cannula 3.00 11/03/17 15:00 60 11/03/17 15:00 98.2 63 16 116/73 (87) 97 122/68 (86) Labs: Laboratory Tests Test 11/04/17 04:45 White Blood Count 13.2 TH/MM3 (4.0-11.0) Red Blood Count 3.50 MIL/MM3 (4.50-5.90) Hemoglobin 10.5 GM/DL (13.0-17.0) Hematocrit 31.4 % (39.0-51.0) Mean Corpuscular Volume 89.7 FL (80.0-100.0) Mean Corpuscular Hemoglobin 30.1 PG (27.0-34.0) Mean Corpuscular Hemoglobin Concent 33.6 % (32.0-36.0) Red Cell Distribution Width 13.6 % (11.6-17.2) Platelet Count 157 TH/MM3 (150-450) Mean Platelet Volume 8.7 FL (7.0-11.0) Blood Urea Nitrogen 18 MG/DL (7-18) Creatinine 0.93 MG/DL (0.60-1.30) Random Glucose 102 MG/DL (74-106) Calcium Level 7.7 MG/DL (8.5-10.1) Magnesium Level 2.0 MG/DL (1.5-2.5) Sodium Level 140 MEQ/L (136-145) Potassium Level 4.4 MEQ/L (3.5-5.1) Chloride Level 107 MEQ/L (98-107) Carbon Dioxide Level 23.7 MEQ/L (21.0-32.0) Anion Gap 9 MEQ/L (5-15) Estimat Glomerular Filtration Rate 79 ML/MIN (>89) Result Diagram: 11/04/1744411/04/17444 Telemetry: NSR (1) CAD in [place] artery (2) S/P CABG x 3 Plan: ASA, statin , BB OOB ambulate PT / pulm toileting nebs ezpap acapella CM to eval for HHC (3) Multi-vessel coronary artery stenosis (4) HLD (hyperlipidemia) Plan: on statin (5) HTN (hypertension) Plan: controlled Farzaneh Jett Nov 04, 2017 14:21
[2017-11-04] MEDS: KETOROLAC TROMETHAMINE 30 MG/ML (IVP) VIAL IV PUSH PRN (19:36)
[2017-11-04] MEDS: DOCUSATE SODIUM 100 MG CAP PO SCH (21:00)
[2017-11-04] MEDS: CARVEDILOL 6.25 MG TAB PO SCH (23:25)
[2017-11-04] MEDS: ATORVASTATIN 10 MG TAB PO SCH (23:26)
[2017-11-04] MEDS: SENNOSIDES 8.6 MG TAB PO SCH (23:26)
[2017-11-05] VITALS (25 sets, daily range): BP systolic 100–118; BP diastolic 52–61; PULSE 70–92; RESP 14–20; TEMP 97.6–99.7; O2SAT 94–100
[2017-11-05] MEDS: INSULIN ASPART SUPPLEMENTAL SCALE SQ SCH ×5 (02:00→21:00)
[2017-11-05 05:24] LABS: AUTOMATED NEUTROPHIL # 9.2 TH/MM3 (1.8-7.7); BASOPHIL % 0.3 % (0.0-2.0); EOSINOPHIL # 0.1 TH/MM3 (0-0.4); EOSINOPHIL % 0.9 % (0.0-4.0); HEMATOCRIT 27.5 % (39.0-51.0); HEMOGLOBIN 9.5 GM/DL (13.0-17.0); LYMPH % 9.6 % (9.0-44.0); LYMPHOCYTE # 1.1 TH/MM3 (1.0-4.8); MEAN CELL VOLUME 89.4 FL (80.0-100.0); MEAN CORPUSCULAR HGB CONC 34.6 % (32.0-36.0); MEAN PLATELET VOLUME 8.7 FL (7.0-11.0); MONO % 10.1 % (0.0-8.0); MONOCYTE # 1.2 TH/MM3 (0-0.9); NEUT % 79.1 % (16.0-70.0); PLATELET COUNT 141 TH/MM3 (150-450); RED BLOOD COUNT 3.08 MIL/MM3 (4.50-5.90); RED CELL DISTRIBUTION WIDTH 13.6 % (11.6-17.2); WHITE BLOOD COUNT 11.6 TH/MM3 (4.0-11.0)
[2017-11-05 05:42] LABS: BICARBONATE 25.5 MEQ/L (21.0-32.0); CALCIUM 7.7 MG/DL (8.5-10.1); CREATININE 1.1 MG/DL (0.60-1.30); MAGNESIUM 2.2 MG/DL (1.5-2.5)
[2017-11-05] MEDS: PANTOPRAZOLE SOD 40 MG DELAYED RELEASE TAB PO SCH (06:00)
[2017-11-05] MEDS: RESP: ALBUTEROL 2.5 MG/IPRATROPIUM 0.5 MG NEB (SCH) NEB ×3 (08:33→20:35)
[2017-11-05] MEDS: POLYETHYLENE GLYCOL 17 GM PKG PO SCH (08:42)
[2017-11-05] MEDS: DOCUSATE SODIUM 100 MG CAP PO SCH ×2 (08:42→21:00)
[2017-11-05] MEDS: MAGNESIUM HYDROXIDE SUSP 30 ML CUP PO SCH (08:42)
[2017-11-05] MEDS: ASPIRIN 81 MG CHEW TAB PO SCH (08:43)
[2017-11-05] MEDS: MULTIVITAMINS/MINERALS THERAPEUTIC TAB PO SCH (08:43)
[2017-11-05] MEDS: CLOPIDOGREL 75 MG TAB PO SCH (08:43)
[2017-11-05] MEDS: CARVEDILOL 6.25 MG TAB PO SCH ×2 (08:43→21:39)
[2017-11-05] MEDS: AMIODARONE 200 MG TAB PO SCH ×2 (08:43→21:39)
[2017-11-05] MEDS: SODIUM CHLORIDE 0.9% FLUSH 10 ML FLUSH IV FLUSH SCH ×2 (08:44→21:39)
--- NOTE | 2017-11-05 09:29 | RSPPFT ---
DATE OF PROCEDURE: 10/31/17 COMMENTS: The forced vital capacity shows a small reduction. The FEV1 shows a small reduction with a normal FEV1/FVC ratio. The FEF 25-75 shows a moderate reduction. 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
[2017-11-05] MEDS ORDERED: FUROSEMIDE 40 MG/4 ML VIAL IV PUSH ONE (10:30)
[2017-11-05] MEDS ORDERED: POTASSIUM CHLORIDE 20 MEQ CONTROLLED RELEASE TAB PO ONE (10:30)
--- NOTE | 2017-11-05 15:57 | PD.CAR.PN ---
CVT Progress Note Subjective/Hospital Course: Mr. Jorge is a very pleasant 77-year gentleman with known history of hypertension and hyperlipidemia who presents with a progressive one-year history of intermittent chest pain described as a mid sternal discomfort and a pressure sensation primarily with exertion and lasts up to 4 to five minutes with resolution. He denies any exacerbating or associated symptoms or diaphoresis. The patient has been seen by Dr. Santillan and has undergone further workup and evaluation. Eventual coronary angiogram today revealed multivessel coronary artery disease with relatively preserved ventricular function and small coronary arteries. Dr rAango was consulted for surgical revascularization therapy. PAST MEDICAL HISTORY: Hyperlipidemia, Hypertension, Peripheral vascular occlusive disease surgery: 11/03 1. Urgent Clampless Off-pump Coronary Artery Bypass Grafting x 3 with Left Internal Mammary Artery ([place]) to the Left Anterior Descending (LAD), reverse saphenous vein graft to the Posterior Descending (RPDA) branch of the Right Coronary Artery, reverse saphenous vein graft to the Diagonal 1 (D1) branch of the LAD 2. Left Leg Endoscopic Vein [place] extubated after surgery crystalloid 3300cc/ cell saver 520cc, EBL 1000cc 11/04 pt up in chair, remains in NSR BB restarted, on statin , ASA, plavix chest tube drained 170cc/ 12 hrs stable for transfer to stepdown unit 11/05 doing well , chest tube drained 180cc/ 12 hrs weaning off 02 pain controlled Objective: Vital Signs Date Time Temp Pulse Resp B/P (MAP) Pulse Ox O2 Delivery O2 Flow Rate FiO2 11/05/17 15:00 94 Room Air 11/05/17 15:00 88 11/05/17 15:00 98.8 86 20 100/61 (74) 94 11/05/17 14:00 83 11/05/17 13:00 84 11/05/17 12:00 78 11/05/17 11:00 81 11/05/17 11:00 94 Room Air 11/05/17 11:00 98.2 70 20 101/57 (72) 94 11/05/17 10:00 83 11/05/17 09:00 90 11/05/17 08:33 94 21 11/05/17 08:00 82 11/05/17 07:15 96 Room Air 11/05/17 07:15 97.9 89 20 118/54 (75) 96 11/05/17 07:15 83 11/05/17 05:00 86 11/05/17 04:00 84 11/05/17 03:00 95 Room Air 11/05/17 03:00 88 11/05/17 03:00 99.7 88 14 105/52 (69) 95 11/05/17 02:00 84 11/05/17 01:00 84 11/05/17 00:00 84 11/04/17 23:00 93 11/04/17 23:00 99 Nasal Cannula 2.00 11/04/17 23:00 98.1 84 12 110/60 (77) 99 11/04/17 22:00 92 11/04/17 20:54 94 Nasal Cannula 2.00 11/04/17 19:00 93 11/04/17 19:00 99.2 92 16 120/60 (80) 94 11/04/17 19:00 98 Nasal Cannula 2.00 Labs: Laboratory Tests Test 11/05/17 04:50 White Blood Count 11.6 TH/MM3 (4.0-11.0) Red Blood Count 3.08 MIL/MM3 (4.50-5.90) Hemoglobin 9.5 GM/DL (13.0-17.0) Hematocrit 27.5 % (39.0-51.0) Mean Corpuscular Volume 89.4 FL (80.0-100.0) Mean Corpuscular Hemoglobin 31.0 PG (27.0-34.0) Mean Corpuscular Hemoglobin Concent 34.6 % (32.0-36.0) Red Cell Distribution Width 13.6 % (11.6-17.2) Platelet Count 141 TH/MM3 (150-450) Mean Platelet Volume 8.7 FL (7.0-11.0) Neutrophils (%) (Auto) 79.1 % (16.0-70.0) Lymphocytes (%) (Auto) 9.6 % (9.0-44.0) Monocytes (%) (Auto) 10.1 % (0.0-8.0) Eosinophils (%) (Auto) 0.9 % (0.0-4.0) Basophils (%) (Auto) 0.3 % (0.0-2.0) Neutrophils # (Auto) 9.2 TH/MM3 (1.8-7.7) Lymphocytes # (Auto) 1.1 TH/MM3 (1.0-4.8) Monocytes # (Auto) 1.2 TH/MM3 (0-0.9) Eosinophils # (Auto) 0.1 TH/MM3 (0-0.4) Basophils # (Auto) 0.0 TH/MM3 (0-0.2) CBC Comment DIFF FINAL Differential Comment Blood Urea Nitrogen 20 MG/DL (7-18) Creatinine 1.10 MG/DL (0.60-1.30) Random Glucose 130 MG/DL (74-106) Calcium Level 7.7 MG/DL (8.5-10.1) Magnesium Level 2.2 MG/DL (1.5-2.5) Sodium Level 133 MEQ/L (136-145) Potassium Level 4.3 MEQ/L (3.5-5.1) Chloride Level 101 MEQ/L (98-107) Carbon Dioxide Level 25.5 MEQ/L (21.0-32.0) Anion Gap 7 MEQ/L (5-15) Estimat Glomerular Filtration Rate 65 ML/MIN (>89) Result Diagram: 11/05/170 11/05/17449 Telemetry: NSR (1) CAD in [place] artery (2) S/P CABG x 3 Plan: ASA, statin , BB eval to remove chest tube in am OOB ambulate PT / pulm toileting nebs ezpap acapella CM to eval for HHC (3) Multi-vessel coronary artery stenosis (4) HLD (hyperlipidemia) Plan: on statin (5) HTN (hypertension) Plan: controlled Farzaneh Jett Nov 05, 2017 15:56
[2017-11-05] MEDS ORDERED: MIDAZOLAM HCL 5 MG/ML VIAL (1 ML) ONE (18:07)
[2017-11-05] MEDS: SENNOSIDES 8.6 MG TAB PO SCH (21:00)
[2017-11-05] MEDS: ACETAMINOPHEN/HYDROcodone 325 MG/5 MG TAB PO PRN (21:38)
[2017-11-05] MEDS: ATORVASTATIN 10 MG TAB PO SCH (21:39)
[2017-11-06] VITALS (27 sets, daily range): BP systolic 107–145; BP diastolic 57–68; PULSE 77–90; RESP 16–20; TEMP 98–98.8; O2SAT 95–99
[2017-11-06 05:01] LABS: HEMATOCRIT 26.1 % (39.0-51.0); MEAN CELL VOLUME 89.6 FL (80.0-100.0); MEAN CORPUSCULAR HEMOGLOBIN 30.9 PG (27.0-34.0); MEAN CORPUSCULAR HGB CONC 34.5 % (32.0-36.0); MEAN PLATELET VOLUME 8.9 FL (7.0-11.0); PLATELET COUNT 150 TH/MM3 (150-450); RED BLOOD COUNT 2.92 MIL/MM3 (4.50-5.90); RED CELL DISTRIBUTION WIDTH 13.4 % (11.6-17.2); WHITE BLOOD COUNT 9.7 TH/MM3 (4.0-11.0)
[2017-11-06 05:36] LABS: BICARBONATE 28.5 MEQ/L (21.0-32.0); CALCIUM 8.3 MG/DL (8.5-10.1); CREATININE 1.04 MG/DL (0.60-1.30); MAGNESIUM 2.4 MG/DL (1.5-2.5)
[2017-11-06] MEDS: PANTOPRAZOLE SOD 40 MG DELAYED RELEASE TAB PO SCH (05:44)
[2017-11-06] MEDS ORDERED: SOD PHOSPHATE/SOD BIPHOSPHATE (ADULT) ENEMA 133ML RECTAL PRN (06:00)
[2017-11-06] MEDS: INSULIN ASPART SUPPLEMENTAL SCALE SQ SCH ×4 (07:14→20:32)
[2017-11-06] MEDS: RESP: ALBUTEROL 2.5 MG/IPRATROPIUM 0.5 MG NEB (SCH) NEB ×2 (07:38→11:40)
[2017-11-06] MEDS: DOCUSATE SODIUM 100 MG CAP PO SCH ×2 (08:20→20:26)
[2017-11-06] MEDS: POLYETHYLENE GLYCOL 17 GM PKG PO SCH (08:21)
[2017-11-06] MEDS: MAGNESIUM HYDROXIDE SUSP 30 ML CUP PO SCH (08:21)
[2017-11-06] MEDS: CARVEDILOL 6.25 MG TAB PO SCH ×2 (08:22→20:25)
[2017-11-06] MEDS: MULTIVITAMINS/MINERALS THERAPEUTIC TAB PO SCH (08:22)
[2017-11-06] MEDS: CLOPIDOGREL 75 MG TAB PO SCH (08:22)
[2017-11-06] MEDS: ASPIRIN 81 MG CHEW TAB PO SCH (08:22)
[2017-11-06] MEDS: SODIUM CHLORIDE 0.9% FLUSH 10 ML FLUSH IV FLUSH SCH ×2 (08:22→20:25)
[2017-11-06] MEDS: AMIODARONE 200 MG TAB PO SCH ×2 (08:22→20:25)
--- NOTE | 2017-11-06 10:53 | PD.CAR.PN ---
CVT Progress Note Subjective/Hospital Course: Mr. Jorge is a very pleasant 77-year gentleman with known history of hypertension and hyperlipidemia who presents with a progressive one-year history of intermittent chest pain described as a mid sternal discomfort and a pressure sensation primarily with exertion and lasts up to 4 to five minutes with resolution. He denies any exacerbating or associated symptoms or diaphoresis. The patient has been seen by Dr. Santillan and has undergone further workup and evaluation. Eventual coronary angiogram today revealed multivessel coronary artery disease with relatively preserved ventricular function and small coronary arteries. Dr Arango was consulted for surgical revascularization therapy. PAST MEDICAL HISTORY: Hyperlipidemia, Hypertension, Peripheral vascular occlusive disease surgery: 11/03 1. Urgent Clampless Off-pump Coronary Artery Bypass Grafting x 3 with Left Internal Mammary Artery ([place]) to the Left Anterior Descending (LAD), reverse saphenous vein graft to the Posterior Descending (RPDA) branch of the Right Coronary Artery, reverse saphenous vein graft to the Diagonal 1 (D1) branch of the LAD 2. Left Leg Endoscopic Vein [place] extubated after surgery crystalloid 3300cc/ cell saver 520cc, EBL 1000cc 11/04 pt up in chair, remains in NSR BB restarted, on statin , ASA, plavix chest tube drained 170cc/ 12 hrs stable for transfer to stepdown unit 11/05 doing well , chest tube drained 180cc/ 12 hrs weaning off 02 pain controlled 11/06 chest tube removed without difficulty on room air rhythm stable , eval for dc tomorrow/ home with HHC + edema lower ext, gentle diuresis Objective: GENERAL: A&O x 3 SKIN: Warm and dry. prevena in place to chest / incision intact to left leg HEAD: Normocephalic. EYES: No scleral icterus. No injection or drainage. NECK: Supple, trachea midline. No JVD or lymphadenopathy. CARDIOVASCULAR: Regular rate and rhythm without murmurs, gallops, or rubs. RESPIRATORY: Breath sounds equal bilaterally. No accessory muscle use. GASTROINTESTINAL: Abdomen soft, non-tender, nondistended. MUSCULOSKELETAL: No cyanosis, or edema. BACK: Nontender without obvious deformity. No CVA tenderness. Vital Signs Date Time Temp Pulse Resp B/P (MAP) Pulse Ox O2 Delivery O2 Flow Rate FiO2 11/06/17 10:00 82 11/06/17 09:00 88 11/06/17 08:00 84 11/06/17 07:38 99 21 11/06/17 07:15 98.8 88 20 122/59 (80) 95 11/06/17 07:15 95 Room Air 11/06/17 07:15 77 11/06/17 06:00 78 11/06/17 05:00 81 11/06/17 04:00 98.6 84 16 107/57 (74) 96 11/06/17 04:00 96 Room Air 11/06/17 04:00 78 11/06/17 03:00 83 11/06/17 02:00 79 11/06/17 01:00 79 11/06/17 00:00 77 11/05/17 23:09 16 11/05/17 23:00 98.5 92 16 118/61 (80) 97 11/05/17 23:00 97 Room Air 11/05/17 23:00 83 11/05/17 22:00 92 11/05/17 21:00 88 11/05/17 20:35 95 21 11/05/17 20:00 88 11/05/17 19:00 100 Room Air 11/05/17 19:00 88 11/05/17 19:00 97.6 85 16 111/61 (78) 100 11/05/17 18:00 90 11/05/17 17:00 83 11/05/17 16:00 74 11/05/17 15:00 94 Room Air 11/05/17 15:00 88 11/05/17 15:00 98.8 86 20 100/61 (74) 94 11/05/17 14:00 83 11/05/17 13:00 84 11/05/17 12:00 78 11/05/17 11:00 81 11/05/17 11:00 94 Room Air 11/05/17 11:00 98.2 70 20 101/57 (72) 94 Labs: Laboratory Tests Test 11/06/17 04:20 White Blood Count 9.7 TH/MM3 (4.0-11.0) Red Blood Count 2.92 MIL/MM3 (4.50-5.90) Hemoglobin 9.0 GM/DL (13.0-17.0) Hematocrit 26.1 % (39.0-51.0) Mean Corpuscular Volume 89.6 FL (80.0-100.0) Mean Corpuscular Hemoglobin 30.9 PG (27.0-34.0) Mean Corpuscular Hemoglobin Concent 34.5 % (32.0-36.0) Red Cell Distribution Width 13.4 % (11.6-17.2) Platelet Count 150 TH/MM3 (150-450) Mean Platelet Volume 8.9 FL (7.0-11.0) Blood Urea Nitrogen 20 MG/DL (7-18) Creatinine 1.04 MG/DL (0.60-1.30) Random Glucose 97 MG/DL (74-106) Calcium Level 8.3 MG/DL (8.5-10.1) Magnesium Level 2.4 MG/DL (1.5-2.5) Sodium Level 134 MEQ/L (136-145) Potassium Level 4.2 MEQ/L (3.5-5.1) Chloride Level 99 MEQ/L (98-107) Carbon Dioxide Level 28.5 MEQ/L (21.0-32.0) Anion Gap 7 MEQ/L (5-15) Estimat Glomerular Filtration Rate 70 ML/MIN (>89) Result Diagram: 11/06/17 0420 11/06/17 0420 (1) CAD in [place] artery (2) S/P CABG x 3 Plan: ASA, statin , BB chest tube removed OOB ambulate PT / pulm toileting nebs ezpap acapella CM to eval for HHC (3) Multi-vessel coronary artery stenosis (4) HLD (hyperlipidemia) Plan: on statin (5) HTN (hypertension) Plan: controlled Farzaneh Jett Nov 06, 2017 10:53
[2017-11-06] MEDS ORDERED: POTASSIUM CHLORIDE 20 MEQ CONTROLLED RELEASE TAB PO ONE (11:00)
[2017-11-06] MEDS ORDERED: FUROSEMIDE 40 MG/4 ML VIAL IV PUSH ONE (11:00)
--- NOTE | 2017-11-06 16:27 | HHI.FF ---
Face to Face Verification Diagnosis: (1) CAD in [place] artery (2) HTN (hypertension) (3) HLD (hyperlipidemia) (4) Multi-vessel coronary artery stenosis (5) S/P CABG x 3 Home Health Nursing Order: Signs/symptoms of disease process Medication education-adverse effect Wound care and dressing changes Nursing assessment with vital signs Instructions: Heart and Vascular Surgery patients *Special attention to sternal dressing Mandatory frequency Assess and evaluation, 4 days in a row The next week 3X week 2 times a week for 4 weeks 1 time a week for 5 weeks Schedule Heart and Vascular patients for full 60 day certification period Initial visit Review Open Heart Surgery Discharge Instructions (Sternal precautions, Activity, Elastic hose, Incision care, Driving, Incentive spirometry, Smoking, [place], Work and other) Need Betadine to paint incision Medication reconciliation Importance of follow up care/ check on appointments Make calendar record temperature daily When to call [facility] nurse, review instructions, phone list Incentive Spirometry, demonstration Visit 1- Begin discharge instruction for patient family and/ or caregiver using teach back method- Signs and symptoms of infection Disease characteristics Medicines and side effects Foods and nutrition/ appetite Infection control/ hand washing/ hygiene Visit 2- Continue teaching Discharge instructions- include additional information on smoking cessation , sternal dressing (sternal vac) Visit 3- Continue teaching- Cough and deep breathing, incision monitoring. Choose my plate Visit 4- Continue teaching- Discuss limitations Discuss how they are feeling Discuss progress toward goals Remaining visits- continue teaching and monitoring PREVENA Single Use Negative Wound Therapy System Caregiver Instruction Sheet 1. A Prevena dressing system was applied to the chest incision during surgery , to promote wound healing. It works via a suction device (negative pressure wound therapy) to remove low to moderate levels of exudate (drainage) and infectious materials. We recommend that the device stay in place for up to seven days, from day of surgery. 2. Day of Surgery__/09/08 Day of Removal ____11/10/17 3. The dressing should only be removed by a health foster care social worker. Please arrange removal of device to coincide with Home Health visit and or with Nursing staff at Rehab 4. If skin reddening or irritation of skin occurs, or excessive drainage, please notify the Cardiovascular Surgeons office at [phone]. 5. Light showering is permissible; however the pump should be disconnected and placed in safe location, where it will not get wet. The dressing should not be exposed to direct spray or submerged in water. No bath tub / shower only. Ensure the end of the tubing attached to the dressing is facing down so that water does not enter the top of the tube. 6. To remove Prevena dressing: press purple button to turn off device / remove the suction. Then disconnect the tubing from the pump. The fixation strips should be stretched away from the skin and the dressing lifted at one corner and peeled back until it has been fully removed. 7. After removal, it is ok to shower daily using liquid dial soap and clean wash cloth, rinse and pat dry, and leave incision open to air dry. For any concerns regarding Prevena dressing, and or wounds, please contact Bianca Patel, patient navigator at [phone] or notify the Cardiovascular Surgeons office at [phone]. Incentive spirometry Q1 hr x 10, while awake, also use acapella device hourly whole awake Sternal Breast Bone Precautions: NO pushing or pulling, ( pt must use sternal pillow to support chest with all activities and with coughing ( takes up to 3 months breast bone to heal ) Daily incision care: ok to shower daily, no tub bath. Wash all incisions with liquid dial soap, clean wash cloth to each site, rinse and pat dry. Observe for any signs of infection, such as drainage which is dark yellow, alfonso, green or foul smelling. Immediately report to the surgeon any drainage from the chest incision, or legs, and for any abnormal drainage from the chest tube sites. Notify surgeon if any temp >101.5 degrees F. When specialty dressing removed/ or if you do not have one, continue to shower daily as above, then rinse and pat incision dry and paint with betadine daily x 5 days. Allow steri strips to fall off if you have any. Avoid lotions, creams, salves, oils, etc. for the first month Please see attached forms for additional instructions regarding post Open Heart specialty wound vacuum dressings. CHANDAN or Prevena , Dressing to be removed by Nursing staff on __11/10/17 F/U appointment: as per DC instructions: PCP in 2 weeks, CV surgeon 2 weeks, Clerical Specialist 3-4 weeks For any questions regarding incisions/ dressing / meds / post op care or above Symptoms, Friday 8am-5pm Heart & Vascular Surgery Office ( Dr. Arango & Dr. Mauricio), After Hours / Nights (5pm -8am) Weekends and Holidays Please call [facility] Card[facility] ([facility]) Charge Nurse I have seen patient Tod Jorge on 11/06/17. My clinical findings support the need for the requested home health care services because: Deconditioned w/ increased weakness I certify that my clinical findings support that this patient is homebound because: Post-op weakness Farzaneh Jett Nov 06, 2017 16:27
[2017-11-06] MEDS: ATORVASTATIN 10 MG TAB PO SCH (20:25)
[2017-11-06] MEDS: SENNOSIDES 8.6 MG TAB PO SCH (20:26)
[2017-11-07] VITALS (14 sets, daily range): BP systolic 122–131; BP diastolic 57–64; PULSE 7–89; RESP 16–18; TEMP 98–98.6; O2SAT 95–99
--- NOTE | 2017-11-07 05:49 | RADRPT ---
EXAM DATE/TIME: 11/07/2017 04:53 [facility] COMPARISON: CHEST SINGLE AP, November 04, 2017, 4:08. INDICATIONS : Chest tube removal- Evaluate for pneumothorax MEDICAL HISTORY : Hypertension. SURGICAL HISTORY : Tonsillectomy. Cardiac catheterization ENCOUNTER: Subsequent ACUITY: 1 week PAIN SCORE: 6/10 LOCATION: Bilateral chest FINDINGS: Previously seen left chest tube has been removed. No definite pneumothorax is seen for technique. The re is minimal prominence of the interstitial markings. CONCLUSION: No definite pneumothorax for technique. Rj Perry MD on November 07, 2017 at 5:47 Board Certified Radiologist. This report was verified electronically.
[2017-11-07] MEDS: PANTOPRAZOLE SOD 40 MG DELAYED RELEASE TAB PO SCH (05:55)
[2017-11-07] MEDS: INSULIN ASPART SUPPLEMENTAL SCALE SQ SCH ×2 (08:00→12:00)
[2017-11-07] MEDS: MAGNESIUM HYDROXIDE SUSP 30 ML CUP PO SCH (09:00)
[2017-11-07] MEDS: SODIUM CHLORIDE 0.9% FLUSH 10 ML FLUSH IV FLUSH SCH (09:00)
[2017-11-07] MEDS: DOCUSATE SODIUM 100 MG CAP PO SCH (09:00)
[2017-11-07] MEDS: POLYETHYLENE GLYCOL 17 GM PKG PO SCH (09:36)
[2017-11-07] MEDS: CLOPIDOGREL 75 MG TAB PO SCH (09:36)
[2017-11-07] MEDS: CARVEDILOL 6.25 MG TAB PO SCH (09:36)
[2017-11-07] MEDS: AMIODARONE 200 MG TAB PO SCH (09:36)
[2017-11-07] MEDS: MULTIVITAMINS/MINERALS THERAPEUTIC TAB PO SCH (09:36)
[2017-11-07] MEDS: ASPIRIN 81 MG CHEW TAB PO SCH (09:36)
[2017-11-07] MEDS ORDERED: AMIO200T PO (12:33)
[2017-11-07] MEDS ORDERED: PLAV75TA29 PO (12:33)
[2017-11-07] MEDS ORDERED: THERM PO (12:34)
[2017-11-07] MEDS ORDERED: ASPI81 PO (12:34)
[2017-11-07] MEDS ORDERED: CARV6.25 PO (12:34)
[2017-11-07] MEDS ORDERED: HYDR-3516 PO (12:34)
[2017-11-07] MEDS ORDERED: DOCU1CAP39 PO (12:34)
[2017-11-07] MEDS ORDERED: POTA-163 PO (13:35)
[2017-11-07] MEDS ORDERED: FURO1TAB60 PO (13:35)
--- NOTE | 2017-11-07 13:39 | HHI.DS ---
Discharge Summary Admission Date Oct 31, 2017 at 11:25 Discharge Date: Nov 07, 2017 Admitting Diagnosis chest pain , CAD (1) CAD in [place] artery Diagnosis: Principal ICD Codes: I25.10 - Atherosclerotic heart disease of [place] coronary artery without angina pectoris (2) HTN (hypertension) Diagnosis: Principal ICD Codes: I10 - Essential (primary) hypertension Status: Chronic (3) HLD (hyperlipidemia) Diagnosis: Principal ICD Codes: E78.5 - Hyperlipidemia, unspecified Status: Chronic (4) Multi-vessel coronary artery stenosis Diagnosis: Principal ICD Codes: I25.10 - Atherosclerotic heart disease of [place] coronary artery without angina pectoris (5) S/P CABG x 3 Diagnosis: Secondary ICD Codes: Z95.1 - Presence of aortocoronary bypass graft Procedures 11/03 1. Urgent Clampless Off-pump Coronary Artery Bypass Grafting x 3 with Left Internal Mammary Artery ([place]) to the Left Anterior Descending (LAD), reverse saphenous vein graft to the Posterior Descending (RPDA) branch of the Right Coronary Artery, reverse saphenous vein graft to the Diagonal 1 (D1) branch of the LAD 2. Left Leg Endoscopic Vein [place] 3. Intraoperative Vein Mapping Brief History Mr. Jorge is a very pleasant 77-year gentleman with known history of hypertension and hyperlipidemia who presents with a progressive one-year history of intermittent chest pain described as a mid sternal discomfort and a pressure sensation primarily with exertion and lasts up to 4 to five minutes with resolution. He denies any exacerbating or associated symptoms or diaphoresis. The patient has been seen by Dr. Santillan and has undergone further workup and evaluation. Eventual coronary angiogram today revealed multivessel coronary artery disease with relatively preserved ventricular function and small coronary arteries. Dr Arango was consulted for surgical revascularization therapy. PAST MEDICAL HISTORY: Hyperlipidemia, Hypertension, Peripheral vascular occlusive disease CBC/BMP: 11/06/17 0420 11/06/17 0420 Significant Findings Laboratory Tests Test 11/05/17 04:50 11/06/17 04:20 White Blood Count 11.6 TH/MM3 (4.0-11.0) Red Blood Count 3.08 MIL/MM3 (4.50-5.90) 2.92 MIL/MM3 (4.50-5.90) Hemoglobin 9.5 GM/DL (13.0-17.0) 9.0 GM/DL (13.0-17.0) Hematocrit 27.5 % (39.0-51.0) 26.1 % (39.0-51.0) Platelet Count 141 TH/MM3 (150-450) Neutrophils (%) (Auto) 79.1 % (16.0-70.0) Monocytes (%) (Auto) 10.1 % (0.0-8.0) Neutrophils # (Auto) 9.2 TH/MM3 (1.8-7.7) Monocytes # (Auto) 1.2 TH/MM3 (0-0.9) Blood Urea Nitrogen 20 MG/DL (7-18) 20 MG/DL (7-18) Random Glucose 130 MG/DL (74-106) Calcium Level 7.7 MG/DL (8.5-10.1) 8.3 MG/DL (8.5-10.1) Sodium Level 133 MEQ/L (136-145) 134 MEQ/L (136-145) Estimat Glomerular Filtration Rate 65 ML/MIN (>89) 70 ML/MIN (>89) Imaging Last Impressions Chest X-Ray 11/07/17 0600 Signed Impressions: Service Date/Time: Tuesday, November 07, 2017 04:53 - CONCLUSION: No definite pneumothorax for technique. K. Vinod Perry MD Lower Extremity Ultrasound 10/31/17 0000 Signed Impressions: Service Date/Time: Tuesday, October 31, 2017 13:59 - CONCLUSION: Venous mapping as above. Ridge Mack MD FACR Carotid Artery Ultrasound 10/31/17 0000 Signed Impressions: Service Date/Time: Tuesday, October 31, 2017 14:20 - CONCLUSION: Negative examination for a hemodynamically significant carotid stenosis. Ridge Mack MD FACR PE at Discharge GENERAL: A&O x 3 SKIN: Warm and dry. prevena dressing to chest , incision intact to left leg HEAD: Normocephalic. EYES: No scleral icterus. No injection or drainage. NECK: Supple, trachea midline. No JVD or lymphadenopathy. CARDIOVASCULAR: Regular rate and rhythm without murmurs, gallops, or rubs. +1 edema lower ext RESPIRATORY: Breath sounds equal bilaterally. No accessory muscle use. GASTROINTESTINAL: Abdomen soft, non-tender, nondistended. MUSCULOSKELETAL: No cyanosis, or edema. BACK: Nontender without obvious deformity. No CVA tenderness. Hospital Course surgery: 11/03 1. Urgent Clampless Off-pump Coronary Artery Bypass Grafting x 3 with Left Internal Mammary Artery ([place]) to the Left Anterior Descending (LAD), reverse saphenous vein graft to the Posterior Descending (RPDA) branch of the Right Coronary Artery, reverse saphenous vein graft to the Diagonal 1 (D1) branch of the LAD 2. Left Leg Endoscopic Vein [place] extubated after surgery crystalloid 3300cc/ cell saver 520cc, EBL 1000cc 11/04 pt up in chair, remains in NSR BB restarted, on statin , ASA, plavix chest tube drained 170cc/ 12 hrs stable for transfer to stepdown unit 11/05 doing well , chest tube drained 180cc/ 12 hrs weaning off 02 pain controlled 11/06 chest tube removed without difficulty on room air rhythm stable , eval for dc tomorrow/ home with HHC + edema lower ext, gentle diuresis 11/07 doing well, remains in NSR on room air will dc home today lasix po x 5 days for leg edema Pt Condition on Discharge: Good Discharge Disposition: Disch w/ Home Health Serv Discharge Instructions DIET: Follow Instructions for: Heart Healthy Diet Activities you can perform: Full Weight Bearing, Shower Only-No Bath Activities to avoid: Strenuous Activity, Driving Additional Activity Instructio: no lifting > 8lbs or gallon of milk Follow up Referrals: Cardiology - 4 Weeks with Heber Santillan MD PCP Follow-up - [address] Sahil Nesbitt Address: [address] [place] [address] Surgical - 2 Weeks with Farzaneh Jett New Medications: Furosemide (Lasix) 40 Mg Tab 40 MG PO DAILY for edema for 5 Days, #5 TAB 1 Refill Potassium Chloride ER (Potassium Chloride ER) 20 Meq Tab 20 MEQ PO DAILY for Electrolyte Replacement, #5 TAB 1 Refill Amiodarone (Amiodarone) 200 Mg Tab 200 MG PO Q12HR for heart rhythm , #28 TAB 0 Refills Aspirin (Tgt Aspirin) 81 Mg Chw 81 MG PO DAILY for Blood Clot Prevention, #30 EA 2 Refills Carvedilol (Coreg) 6.25 Mg Tab 6.25 MG PO BID for Blood Pressure Management, #60 TAB 2 Refills Clopidogrel (Plavix) 75 Mg Tab 75 MG PO DAILY for Blood Clot Prevention, #30 TAB 2 Refills Docusate Sodium (Dok) 100 Mg Cap 100 MG PO BID for Constipation, #60 CAP 0 Refills Hydrocodone/Acetaminophen (Hydrocodone-Acetamin 5-325 mg) 5 Mg-325 Mg Tablet 1 TAB PO Q4H PRN for PAIN SCALE 1 TO 5, #40 TAB 0 Refills Multiple Vitamins W/ Minerals (Thera M Plus) 1 Tab 1 TAB PO DAILY for multi vitamin, #30 TAB 2 Refills Continued Medications: Atorvastatin (Atorvastatin) 10 Mg Tab 10 MG PO HS for Cholesterol Management, #30 TAB 0 Refills Discontinued Medications: Amlodipine (Amlodipine) 2.5 Mg Tab 2.5 MG PO DAILY for Blood Pressure Management, #30 TAB 0 Refills Aspirin (Aspirin) 81 Mg Chew 162 MG CHEW HS, TAB 0 Refills Carvedilol (Carvedilol) 3.125 Mg Tab 3.125 MG PO BID, #60 TAB 0 Refills Lisinopril (Lisinopril) 20 Mg Tab 20 MG PO DAILY, #30 TAB 0 Refills Nitroglycerin SL (Nitrostat SL) 0.4 Mg Subl 0.4 MG SL DIRECTED PRN for CHEST PAIN, #100 TAB.SL 0 Refills 1 tablet under the tongue as needed for chest pain. Repeat every 5 minutes for a total of 3 DOSES or call 911 if NO relief. Farzaneh Jett Nov 07, 2017 13:39
== END 2017-11-07 14:25 | disposition home health service (06) | DRG 234 ==
LOC: HDOC 05:39 → HDIC 05:39 → HDOC 11:23 → HCPC 11:25 → HCIS 11-03 07:08 → HCVI 11-03 11:55 → HCPC 11-04 20:33
PROVIDERS: ADMIT Internal Medicine Cardiovascular Disease; ATTEND Internal Medicine Cardiovascular Disease
PROC: 4A023N7 Measurement of Cardiac Sampling and Pressure, Left Heart, Percutaneous Approach (ICD-10-PCS; 2017-10-31)
PROC: B2111ZZ Fluoroscopy of Multiple Coronary Arteries using Low Osmolar Contrast (ICD-10-PCS; 2017-10-31)
PROC: B2151ZZ Fluoroscopy of Left Heart using Low Osmolar Contrast (ICD-10-PCS; 2017-10-31)
PROC: 021109W Bypass Coronary Artery, Two Arteries from Aorta with Autologous Venous Tissue, Open Approach (ICD-10-PCS; 2017-11-03)
PROC: 06BQ4ZZ Excision of Left Saphenous Vein, Percutaneous Endoscopic Approach (ICD-10-PCS; 2017-11-03)
PROC: 02100Z9 Bypass Coronary Artery, One Artery from Left Internal Mammary, Open Approach (ICD-10-PCS; principal; 2017-11-03 07:09)
DX: I25.10 Atherosclerotic heart disease of native coronary artery without angina pectoris (principal); R00.1 Bradycardia, unspecified; I73.9 Peripheral vascular disease, unspecified; I10 Essential (primary) hypertension; E78.5 Hyperlipidemia, unspecified; Z87.891 Personal history of nicotine dependence; Z82.3 Family history of stroke; Z82.49 Family history of ischemic heart disease and other diseases of the circulatory system
CPT/HCPCS: 71045; 76937; 80048; 80061; 81001; 82948; 83036; 83735; 85025; 85027; 85610; 85730; 86850; 86900; 86901; 86920; 87641; 93005; 93306; 93458; 93880; 93970; 93998; 94002; 94010; 94150; 94640; 94664; 94667; 94668; 99152; 99153; C1768; C1769; C1893; J0131; J0282; J0690; J1644; J1815; J1817; J1885; J1940; J2250; J2370; J2440; J2720; J3010; J3370; J3475; J3480; J7030; J7060; P9045